=== PATIENT | male | born 1970 | race Caucasian/White ===

== ENCOUNTER 2024-04-27 10:58 | Emergency (ER) | payer OTHER ==
[2024-04-27] MEDS ORDERED: NA CHLORIDE 0.9% 500 ML ONE (11:30)
[2024-04-27 11:54] LABS: Absolute Basophils 0.1 K/uL (0-0.5); Absolute Eosinophils 0.3 K/uL (0-0.5); Absolute Lymphocytes (CBC) 1.8 K/uL (0.7-4.9); Absolute Monocytes 0.8 K/uL (0.1-1.3); Anion Gap 9.4 mEq/L (5.0-15.0); Basophils % 0.6 % (0-1.3); Eosinophils % 1.9 % (0-4.4); Hematocrit 36.3 % (39.6-49.0); Hemoglobin 12.2 g/dL (13.6-17.9); Lymphocytes % 12.8 % (15.3-44.8); MCH 27.4 pg (27.0-35.0); MCHC 33.6 g/dL (32.0-36.0); MCV 81.4 fL (80-100); MPV 8.9 fL (7.6-11.3); Monocytes % 6.1 % (3.3-12.3); Neutrophils % 78.6 % (41.7-73.7); Platelets 318 thou/uL (152-406); Potassium 4.4 mEq/L (3.5-5.1); RBC Red Blood Cell Count 4.45 M/uL (4.33-5.43); Red Cell Distribution Width 16.7 % (12.1-15.2); Troponin High Sensitivity 8.9 pg/mL (<58.9)
[2024-04-27 11:56] LABS: PT Prothrombin Time 26.4 SECONDS (10-13.0); Protime INR 2.42
--- NOTE | 2024-04-27 12:29 | RAD REPORT ---
EXAMINATION: ONE VIEW CHEST XR CLINICAL INDICATION: Male, 53 years old.,syncope;Blunt chest trauma TECHNIQUE: Frontal chest projection is submitted. Examination is limited by patient positioning and t echnique. COMPARISON: 03/16/2014 FINDINGS: The lungs are well inflated and clear. No pneumothorax or sizable effusion. The heart is normal in s ize. Mediastinal contours are unchanged with sequelae of median sternotomy now noted. IMPRESSION: No acute intrathoracic abnormalities.
--- NOTE | 2024-04-27 12:42 | RAD REPORT ---
EXAMINATION: Ribs Right INDICATION: BLUNT CHEST TRAUMA COMPARISON: Same date chest radiograph TECHNIQUE: Frontal and multiple oblique views of the right rib cage. FINDINGS: Included portions of the chest reveal clear lungs. There is no effusion or pneumothorax. Mediastinal contours are within normal limits. No displaced rib fracture is identified. No suspicious focal osseous lesion.. IMPRESSION: No acute fractures are identified radiographically..
--- NOTE | 2024-04-27 13:17 | EDPHYS ---
Physician Documentation [facility] Name: Gerson Boateng Age: 53 yrs Sex: Male : 1970 Arrival Date: 04/27/2024 Time: 10:58 Bed 13 Private MD: ED Physician Agustin Holt HPI: 04/27 11:40 This 53 yrs old Male presents to ER via EMS with complaints of Syncope. rn 11:40 The patient has experienced syncope. Onset: The symptoms/episode began/occurred this rn morning. Duration: This was a single episode. Current symptoms: Currently, the patient is not experiencing any symptoms. The patient has experienced similar episodes in the past. Patient reports fall earlier this morning at his home, has neuropathy and dropfoot, reports recurrent falls due to stumbling. Fell again this morning with arm tucked in on right side and hurt right chest wall. Patient reports soreness to right ribs. No shortness of breath. Patient reports felt okay so went to work, was seated during meeting, got lightheaded and dizzy and had syncopal episode in chair. No fall or trauma during syncopal episode. Patient reports now feels back to normal and is not sure what happened. Denies palpitations or chest pain during that episode. No recent illness. No fever or chills. No vomiting or diarrhea. Sugar has been high for a little while. Historical: - Allergies: 11:11 No Known Allergies; kc6 - PMHx: 11:11 Diabetes mellitus; Hypertensive disorder; Atrial fibrillation; kc6 - PSHx: 11:11 aortic valve replacement; kc6 - Immunization history:: Adult Immunizations up to date. - Infectious Disease History:: Denies. - Social history:: Smoking status: Patient denies any tobacco usage or history of. - Family history:: not pertinent. - Hospitalizations: : No recent hospitalization is reported. ROS: 11:40 Constitutional: Negative for fever, chills, and weight loss, Eyes: Negative for injury, rn pain, redness, and discharge, Neck: Negative for injury, pain, and swelling, Cardiovascular: Positive for right sided chest wall pain Respiratory: Negative for shortness of breath, cough, wheezing, and pleuritic chest pain, Abdomen/GI: Negative for abdominal pain, nausea, vomiting, diarrhea, and constipation, Back: Negative for injury and pain, MS/Extremity: Negative for injury and deformity, Skin: Negative for injury, rash, and discoloration, Neuro: Negative for headache, weakness, numbness, tingling, and seizure, Exam: 11:35 ECG was reviewed by the Attending Physician. rn 11:40 Constitutional: This is a well developed, well nourished patient who is awake, alert, rn and in no acute distress. Head/Face: Normocephalic, atraumatic. ENT: Dry mucous membranes Chest/axilla: Right lateral chest wall tenderness without crepitus Cardiovascular: Regular rate and rhythm. No pulse deficits. Respiratory: Speaking full sentences, unlabored. No increased work of breathing, no retractions or nasal flaring. Abdomen/GI: Soft, nontender, no ecchymosis MS/ Extremity: Pulses equal, no cyanosis. Neuro: Awake and alert, GCS 15, oriented to person, place, time, and situation. Cranial nerves II-XII grossly intact. Motor strength 5/5 in all extremities. Sensory grossly intact. Able to move himself from EMS stretcher to bed without assistance Vital Signs: 11:10 BP 115 / 80; Pulse 55; Resp 15 S; Pulse Ox 100% on R/A; Weight 136.08 kg (R); Height 6 kc6 ft. 2 in. (R); Pain 1/10; 12:20 BP 103 / 73; Pulse 56; Resp 16 S; Pulse Ox 100% on R/A; kc6 13:38 BP 96 / 59; Pulse 55; Resp 16 S; Pulse Ox 100% on R/A; kc6 11:10 Body Mass Index 38.52 (136.08 kg, 187.96 cm) kc6 11:10 Pain Scale: Adult kc6 MDM: 11:07 Medical Screening Exam initiated rn 13:14 Differential Diagnosis: cardiac arrhythmia, idiopathic syncope, vasovagal episode. Data rn reviewed: vital signs, nurses notes, lab test result(s), EKG, radiologic studies, plain films, and as a result, I will discharge patient. Counseling: I had a detailed discussion with the patient and/or guardian regarding the historical points, exam findings, and any diagnostic results supporting the discharge/admit diagnosis, lab results, radiology results, the need for outpatient follow up, to return to the emergency department if symptoms worsen or persist or if there are any questions or concerns that arise at home. Response to treatment: the patient's symptoms have resolved after treatment, the patient's condition has returned to base line, the patient is now symptom free, and as a result, I will discharge patient. Special discussion: I discussed with the patient/guardian in detail that at this point there is no indication for admission to the hospital. It is understood, however, that if the symptoms persist or worsen the patient needs to return immediately for re-evaluation. Based on the history and exam findings, there is no indication for further emergent testing or inpatient evaluation. I discussed with the patient/guardian the need to see the primary care provider for further evaluation of the symptoms. ED course: No acute findings and workup today. No evidence of rib fracture. Patient completely back to baseline. Has ambulated to bathroom without other episodes of dizziness or syncope. I have personally reviewed all of the results, including but not limited to blood tests and imaging deemed necessary to safely discharge this patient at this time. All results given to and printed out for patient. I personally went over all the results with the patient and answered all questions. Patient will follow-up with PCP and or specialist as discussed. Return precautions given and understood.. 04/27 11:08 Order name: Basic Metabolic Panel; Complete Time: 04/27 11:08 Order name: CBC with Diff; Complete Time: 04/27 11:08 Order name: NT PRO-BNP; Complete Time: :04/27 11:08 Order name: PT-INR; Complete Time: :04/27 11:08 Order name: Troponin HS; Complete Time: :04/27 11:08 Order name: XRAY Chest (1 view); Complete Time: 12:44 04/27 11:09 Order name: XRAY Ribs RIGHT; Complete Time: 12:44 04/27 11:08 Order name: EKG; Complete Time: :04/27 11:08 Order name: Cardiac monitoring; Complete Time: :04/27 11:08 Order name: EKG - Nurse/Tech; Complete Time: 11:33 04/27 11:08 Order name: IV Saline Lock; Complete Time: :04/27 11:08 Order name: Labs collected and sent; Complete Time: rn 04/27 11:08 Order name: O2 Per Protocol; Complete Time: rn 04/27 11: Order name: O2 Sat Monitoring; Complete Time: rn EC: Rate is 55 beats/min. Rhythm is regular. QRS interval is normal. QT interval is normal. rn No Q waves. T waves are Normal. No ST changes noted. Clinical impression: Sinus bradycardia. Interpreted by me. Reviewed by me. Administered Medications: Drug: NS 0.9% IV 500 ml 500 ml IV at 1 bolus once; to be given as a bolus over 30 kc6 minutes Volume: 500 ml; Route: IV; Rate: 1 bolus; Site: left antecubital; 13: Follow up: Response: No adverse reaction; IV Status: Completed infusion; IV Intake: kc6 500ml Point of Care Testing: Blood Glucose: : Blood Glucose: 240 mg/dL; kc6 Ranges: Critical Glucose Levels:Adult <50 mg/dl or >400 mg/dl <40 mg/dl or >180 mg/dl Disposition Summary: 04/27/24 13:16 Discharge Ordered Notes: Location: Home rn Problem: new rn Symptoms: have improved rn Condition: Stable rn Diagnosis - Syncope rn - Rib contusion rn - Dehydration rn - Hyperglycemia, unspecified rn Followup: rn - With: Private Physician - When: As needed - Reason: Recheck today's complaints, Re-evaluation by your physician Discharge Instructions: - Discharge Summary Sheet rn - Rib Contusion rn - Dehydration, Adult rn - Hyperglycemia rn - Syncope rn - Blood Glucose Monitoring, Adult rn Forms: - Medication Reconciliation Form rn - Antibiotic aprn - Prescription Opioid Use rn - Patient Portal Instructions rn - Leadership Thank You Letter rn Signatures: Dispatcher [employer] Agustin Martinez MD MD rn Campbell, Kaitlyn, RN RN kc6
--- NOTE | 2024-04-27 13:17 | ER ---
Nurse's Notes [facility] Name: Gerson Boateng Age: 53 yrs Sex: Male : 1970 Arrival Date: 04/27/2024 Time: 10:58 Bed 13 Private MD: Diagnosis: Syncope;Rib contusion;Dehydration;Hyperglycemia, unspecified Presentation: 04/27 11:10 Chief complaint: EMS states: they were toned out for a syncopal episode while sitting kc6 in his office chair and one this AM. no known LOC, pt takes Warfarin daily. Coronavirus screen: At this time, the client does not indicate any symptoms associated with coronavirus-19. Ebola Screen: No symptoms or risks identified at this time. Initial Sepsis Screen: Does the patient meet any 2 criteria? No. Patient's initial sepsis screen is negative. Does the patient have a suspected source of infection? No. Patient's initial sepsis screen is negative. Risk Assessment: Do you want to hurt yourself or someone else? Patient reports no desire to harm self or others. Onset of symptoms was April 27, 2024. Care prior to arrival: Medication(s) given: Lactated Ringers IV initiated. 18 GA, in the left antecubital area, Glucose check: 240. 11:10 Method Of Arrival: EMS: [facility] kc 11:10 Acuity: WARREN 2 kc6 Historical: - Allergies: 11:11 No Known Allergies; kc6 - PMHx: 11:11 Diabetes mellitus; Hypertensive disorder; Atrial fibrillation; kc6 - PSHx: 11:11 aortic valve replacement; kc6 - Immunization history:: Adult Immunizations up to date. - Infectious Disease History:: Denies. - Social history:: Smoking status: Patient denies any tobacco usage or history of. - Family history:: not pertinent. - Hospitalizations: : No recent hospitalization is reported. Screenin:13 [facility] ED Fall Risk Assessment (Adult) History of falling in the last 3 months, kc6 including since admission Yes- physiologic fall (2 pts) Confusion or Disorientation No (0 pts) Intoxicated or Sedated No (0 pts) Impaired Gait No (0 pts) Mobility Assist Device Used No (0 pt) Altered Elimination No (0 pt) Score/Fall Risk Level 0 - 2 = Low Risk Oriented to surroundings, Maintained a safe environment, Educated pt \T\ family on fall prevention, incl call for assistance when getting out of bed. Abuse screen: Denies threats or abuse. Denies injuries from another. Nutritional screening: No deficits noted. Tuberculosis screening: No symptoms or risk factors identified. Assessment: 11:10 General: Appears in no apparent distress. comfortable, well groomed, well developed, kc6 Behavior is calm, cooperative, appropriate for age. Pain: Complains of pain in right lateral anterior chest Pain does not radiate. Pain currently is 1 out of 10 on a pain scale. Neuro: Level of Consciousness is awake, alert, obeys commands, Oriented to person, place, time, situation, Appropriate for age Reports a syncopal episode. Cardiovascular: Denies chest pain, shortness of breath, Heart tones S1 S2 present Capillary refill < 3 seconds Rhythm is sinus bradycardia. Respiratory: Airway is patent Trachea midline Respiratory effort is even, unlabored, Respiratory pattern is regular, symmetrical. GI: No signs and/or symptoms were reported involving the gastrointestinal system. : No signs and/or symptoms were reported regarding the genitourinary system. EENT: No signs and/or symptoms were reported regarding the EENT system. Derm: No signs and/or symptoms reported regarding the dermatologic system. Skin is intact, is healthy with good turgor, Skin is pink, warm \T\ dry. Musculoskeletal: No signs and/or symptoms reported regarding the musculoskeletal system. Circulation, motion, and sensation intact. Range of motion: intact in all extremities. 12:20 Reassessment: Patient appears in no apparent distress at this time. No changes from kc6 previously documented assessment. Patient and/or family updated on plan of care and expected duration. Pain level reassessed. Patient is alert, oriented x 3, equal unlabored respirations, skin warm/dry/pink. 13:37 Reassessment: Patient appears in no apparent distress at this time. No changes from kc6 previously documented assessment. Patient and/or family updated on plan of care and expected duration. Pain level reassessed. Patient is alert, oriented x 3, equal unlabored respirations, skin warm/dry/pink. Patient states feeling better. Patient states symptoms have improved. Vital Signs: 11:10 BP 115 / 80; Pulse 55; Resp 15 S; Pulse Ox 100% on R/A; Weight 136.08 kg (R); Height 6 kc6 ft. 2 in. (R); Pain 1/10; 12:20 BP 103 / 73; Pulse 56; Resp 16 S; Pulse Ox 100% on R/A; kc6 13:38 BP 96 / 59; Pulse 55; Resp 16 S; Pulse Ox 100% on R/A; kc6 11:10 Body Mass Index 38.52 (136.08 kg, 187.96 cm) kc6 11:10 Pain Scale: Adult kc6 ED Course: 11:07 Patient arrived in ED. rn 11:07 Agustin Holt MD is Attending Physician. rn 11:09 Joyce Ellis RN is Primary Nurse. kc6 11:11 Triage completed. kc6 11:11 Arm band placed on. kc6 11:12 Patient has correct armband on for positive identification. Placed in gown. Bed in low kc6 position. Call light in reach. Side rails up X2. Adult w/ patient. quality assurance monitor final on. Pulse ox on. NIBP on. Door closed. Noise minimized. Lights dimmed. Warm blanket given. Pillow given. Verbal reassurance given. 11:12 Maintain EMS IV. Dressing intact. Good blood return noted. Site clean \T\ dry. Gauge \T\ eunice 6 site: 18G LAC. Flushed with 10 mL NS. Patient maintains SpO2 saturation greater than 95% on room air. 11:50 XRAY Chest (1 view) In Process Unspecified. EDMS 11:50 XRAY Ribs RIGHT In Process Unspecified. EDMS 13:38 No provider procedures requiring assistance completed. IV discontinued, intact, kc6 bleeding controlled, No redness/swelling at site. Pressure dressing applied. Administered Medications: 11:33 Drug: NS 0.9% IV 500 ml 500 ml IV at 1 bolus once; to be given as a bolus over 30 kc6 minutes Volume: 500 ml; Route: IV; Rate: 1 bolus; Site: left antecubital; 13:01 Follow up: Response: No adverse reaction; IV Status: Completed infusion; IV Intake: kc6 500ml Medication: 13:38 VIS not applicable for this client. kc6 Point of Care Testing: Blood Glucose: 11:11 Blood Glucose: 240 mg/dL; kc6 Ranges: Intake: 13:01 IV: 500ml; Total: 500ml. kc6 Outcome: 13:16 Discharge ordered by . rn 13:38 Discharged to home ambulatory, with family, with significant other, kc6 13:38 Condition: improved 13:38 Discharge instructions given to patient, family, significant other, Instructed on discharge instructions, follow up and referral plans. Demonstrated understanding of instructions, follow-up care, 13:38 Patient left the ED. kc6 Signatures: Dispatcher [employer] EDAgustin Rutherford MD MD rn Campbell, Kaitlyn, RN RN kc6
[2024-04-27 14:04] VITALS: O2SAT 100
[2024-04-27 14:06] VITALS: BP 96/59
--- NOTE | 2024-04-28 11:00 | EKG ---
Test Date: 2024-04-27 Test Time: 11:18:12 Telehealth Coordinator: IVY MEASUREMENT RESULTS: Intervals: Rate: 55 ND: 194 QRSD: 106 QT: 438 QTc: 419 [place]: P: 60 ND: 194 QRS: 21 T: 64 INTERPRETIVE STATEMENTS: Sinus bradycardia RSR' or QR pattern in V1 suggests right ventricular conduction delay Borderline ECG Compared to ECG 03/16/2014 14:50:51 RSR' in V1 or V2 now present Sinus rhythm no longer present Electronically Signed On 04-28-24 10:57:09 CDT by Daniel Weiss
== END 2024-04-27 13:38 | disposition home or self-care (01) ==
LOC: ER 10:58
DX: E86.0 Dehydration (principal); S20.211A Contusion of right front wall of thorax, initial encounter; E11.65 Type 2 diabetes mellitus with hyperglycemia
CPT/HCPCS: 93005; 85025; 80048; 36415; 85610; 84484; 83880; 71045; 71100; 96360; 99285; J7040

== ENCOUNTER 2024-09-21 11:58 | Inpatient (IN) | payer OTHER ==
--- NOTE | 2024-09-21 12:58 | RAD REPORT ---
EXAM: Chest Single View HISTORY: 53 years Male FEVER COMPARISON: 04/27/2024 FINDINGS: LUNGS/PLEURA: The lungs are clear. No pleural effusions or pneumothorax. No pulmonary edema. CARDIAC/MEDIASTINUM: The cardiac silhouette is within normal limits. UPPER ABDOMEN: No significant abnormality. BONES: No acute abnormality. LINES/TUBES/OTHER: N/A IMPRESSION: No evidence of acute cardiopulmonary disease.
--- NOTE | 2024-09-21 12:58 | RAD REPORT ---
EXAMINATION: Head Brain Wo Cont CLINICAL INDICATION: Male, 53 years old.SYNCOPE TECHNIQUE: Axial CT images from the skull base to the vertex without intravenous contrast. Coronal an d sagittal reformatted images were created from the data set. One or more of the following dose reduction techniques were used: Automated exposure control, adjustment of the mA and/or kV according to patient size, and/or iterative reconstruction. Unless otherwise specified, incidental findings do not require dedicated imaging follow-up. [id number]. COMPARISON: No prior exams FINDINGS: INTRACRANIAL: No acute intracranial hemorrhage. No acute large vascular territory infarct. No hydroce phalus. No mass effect or midline shift. No significant white matter disease. VASCULATURE: No visualized abnormalities in the arteries or dural venous sinuses. SCALP/SKULL: No calvarial fracture identified. No acute soft tissue abnormality. SINUSES: The visualized paranasal sinuses are mostly clear. No significant mastoid fluid. IMPRESSION: No acute intracranial abnormality.
[2024-09-21 13:25] LABS: Sqamous Epithelial <5 /HPF (None Seen); Urine Culture Reflex Order NOT NEEDED; Urine Microscopic Reflex YN ORDER UMIC; Urine Yeast (Budding) Trace /HPF (None Seen)
[2024-09-21] MEDS ORDERED: NA CHLORIDE 0.9% 1,000 ML ONE ×2 (13:29→14:23)
[2024-09-21 13:41] LABS: Absolute Lymphocytes (CBC) 0.4 K/uL (0.7-4.9); Hematocrit 32.8 % (39.6-49.0); Hemoglobin 11.1 g/dL (13.6-17.9); MCH 32.2 pg (27.0-35.0); MCHC 33.8 g/dL (32.0-36.0); MCV 95.2 fL (80-100); MPV 8.1 fL (7.6-11.3); Nucleated RBC Absolute Count 0.0 (0-0); Nucleated Red Blood Cells % 0.0 % (0-0); RBC Red Blood Cell Count 3.44 M/uL (4.33-5.43); White Blood Count 17.10 thou/uL (4.3-10.9)
[2024-09-21 13:41] LABS: Influenza A Ag Negative; Influenza B Ag Negative; SARS-CoV-2 Antigen Rapid Res Negative (Negative)
[2024-09-21 14:03] LABS: PT Prothrombin Time 18.6 SECONDS (10-13.0); PTT, Activated Partial Thromb 30.9 SECONDS (27.2-37.4); Protime INR 1.67
[2024-09-21 14:05] LABS: ALT/SGPT 62.0 U/L (16-61); AST/SGOT 68.0 U/L (15-37); Albumin 4.0 g/dL (3.4-5.0); Albumin/Globulin Ratio 1.0 (1.1-1.8); Alkaline Phosphatase 85.0 U/L (45-117); Anion Gap 14.3 mEq/L (5.0-15.0); BUN Blood Urea Nitrogen 25.0 mg/dL (7-18); Globulin 3.9 g/dL (2.3-3.5); Glucose Level 135.0 mg/dL (74-106); NT PRO-BNP 202.0 pg/mL (<125); Potassium 4.3 mEq/L (3.5-5.1); Troponin High Sensitivity 8.5 pg/mL (<58.9)
[2024-09-21] MEDS ORDERED: CEFAZOLIN SODIUM 1 GM/VIAL ONE (14:22)
[2024-09-21] MEDS ORDERED: VANCOMYCIN 1 GM/VIAL ONE (14:22)
[2024-09-21] MEDS ORDERED: NA CHLORIDE 0.9% 250 ML ONE ×2 (14:23→14:47)
[2024-09-21] MEDS ORDERED: NA CHLORIDE 0.9% 100 ML ONE (14:24)
[2024-09-21 14:31] LABS: Blood Morphology Comment NOTED (NOT SEEN); White Blood Cell Scan OK (OK)
[2024-09-21 14:32] LABS: Anisocytosis SLIGHT; Macrocytosis SLIGHT; Stomatocytes 1+
--- NOTE | 2024-09-21 15:16 | EDPHYS ---
Physician Documentation [facility] Name: Gerson Boateng Age: 53 yrs Sex: Male : 1970 Arrival Date: 09/21/2024 Time: 11:58 Bed 16 Private MD: ED Physician Agustin Holt HPI: 09/21 12:51 This 53 yrs old Male presents to ER via EMS with complaints of Syncope. rn 12:51 Patient reports syncopal episode while eating, was seated and at rest. Does not recall rn choking on anything. No preceding chest pain or shortness of breath. Reports feeling chills since this morning but no focus of infection. Does report wound to right great toe a couple weeks ago, no drainage but is red. Patient has peripheral neuropathy.. Historical: - Allergies: 12:03 No Known Allergies; ss - PMHx: 12:03 Atrial fibrillation; Atrial fibrillation; diabetes mellitus; Hypertensive disorder; ss - PSHx: 12:03 Aortic valve replacement; ss - Immunization history:: Adult Immunizations unknown. - Infectious Disease History:: Denies. - Social history:: Smoking status: Patient denies any tobacco usage or history of. - Family history:: not pertinent. - Hospitalizations: : No recent hospitalization is reported. ROS: 12:51 Constitutional: Negative for fever, positive for chills Eyes: Negative for injury, rn pain, redness, and discharge, ENT: Negative for injury, pain, and discharge, Neck: Negative for injury, pain, and swelling, Cardiovascular: Negative for chest pain, palpitations, and edema, Respiratory: Negative for shortness of breath, cough, wheezing, and pleuritic chest pain, Abdomen/GI: Negative for abdominal pain, nausea, vomiting, diarrhea, and constipation Back: Negative for injury and pain, : Negative for injury, bleeding, discharge, and swelling, MS/Extremity: Negative for injury and deformity, Skin: Negative for injury, rash, and discoloration, Neuro: Negative for headache, numbness, tingling, and seizure, Exam: 12:51 Constitutional: This is a well developed, well nourished patient who is awake, alert, rn and in no acute distress. Head/Face: Normocephalic, atraumatic. ENT: Dry mucous membranes. Cardiovascular: Regular rate and rhythm. No pulse deficits. Respiratory: Mild tachypnea Abdomen/GI: Soft, non-tender Skin: Right great toe with shallow wound and ecchymosis. No necrosis or drainage. Surrounding erythema but does not extend past foot. MS/ Extremity: Pulses equal, no cyanosis. Neuro: Awake and alert, GCS 15, oriented to person, place, time, and situation. Cranial nerves II-XII grossly intact. Motor strength 5/5 in all extremities. Sensory grossly intact. Vital Signs: 12:02 BP 130 / 73; Pulse 94; Resp 16; Temp 98(O); Pulse Ox 98% on R/A; Weight 113.4 kg; ss Height 6 ft. 2 in. ; Pain 0/10; 13:43 BP 111 / 63; Pulse 91; Resp 20; Pulse Ox 94% on R/A; kj2 15:07 BP 124 / 68; Pulse 92; Resp 20; Pulse Ox 94% on R/A; kj2 17:00 BP 124 / 66; Pulse 102; Resp 20; Temp 98.2; Pulse Ox 95% ; kj2 12:02 Body Mass Index 32.10 (113.40 kg, 187.96 cm) ss 12:02 Pain Scale: Adult ss MDM: 12:02 Medical Screening Exam initiated rn 15:13 Differential Diagnosis: Differential Diagnosis:. Differential Diagnosis: rn lpn cna arrhythmia, vasovagal episode, Infection, cellulitis, bacteremia, endocarditis. Data reviewed: vital signs, nurses notes, lab test result(s). Consideration of Admission/Observation Patient was admitted/placed on observation. Escalation of care including admission/observation considered. Management of patient was discussed with the following: Hospitalist: Discussed case with hospitalist service, will admit for further care.. Independent interpretation of the following test(s) in the Emergency Department EKG: See my EKG interpretation above X-Ray: My interpretation is Chest x-ray images negative for pneumonia or pneumothorax per my interpretation. Care significantly affected by the following chronic conditions: Atrial fibrillation, diabetes, hypertension. Counseling: I had a detailed discussion with the patient and/or guardian regarding the historical points, exam findings, and any diagnostic results supporting the discharge/admit diagnosis, lab results, radiology results, the need for further work-up and treatment in the hospital. Response to treatment: the patient's symptoms have mildly improved after treatment, and as a result, I will admit patient. 09/21 12:12 Order name: BNP; Complete Time: 14:16 rn 04 12:12 Order name: Blood Culture Adult (2) rn / 12:12 Order name: CBC with Diff; Complete Time: 14:43 rn /04 12:12 Order name: CMP; Complete Time: 14:16 rn /04 12:12 Order name: Lactate w/ 2H reflex if indic.; Complete Time: 14:16 rn 09/21 12:12 Order name: Protime (+inr); Complete Time: 14:16 rn 04 12:12 Order name: Ptt, Activated; Complete Time: 14:16 rn / 12:12 Order name: Troponin HS; Complete Time: 14:16 rn /04 12:12 Order name: COVID-19 Ag + Flu A+B Ag; Complete Time: 13:43 04 12:12 Order name: Group A Streptococcus Rapid; Complete Time: 13:43 04 12:12 Order name: UA Rfx Valentino Cult if indicated; Complete Time: 13:43 09/21 13:36 Order name: Throat Culture EDMI 09/21 13:46 Order name: CBC Smear Scan; Complete Time: 14:43 EDMI 09/21 14:07 Order name: Ghost Lactate-NO COLLECT Timer; Complete Time: 16:51 EDMI 09/21 17:04 Order name: Lactate Sepsis 2 HR Follow-up EDMI 09/21 12:12 Order name: Chest Single View XRAY; Complete Time: 13:43 09/21 12:28 Order name: CT Head Brain wo Cont; Complete Time: 13:43 09/21 15:29 Order name: Chest Abdomen Pelvis Wo Con CT; Complete Time: 16:51 la1 09/21 15:50 Order name: Foot Right 3 View XRAY; Complete Time: 16:51 la1 09/21 12:12 Order name: Accucheck rn 09/21 12:12 Order name: Cardiac monitoring rn 09/21 12:12 Order name: EKG - Nurse/Tech; Complete Time: 14:18 rn 09/21 12:12 Order name: IV Saline Lock - Large Bore rn 09/21 12:12 Order name: Labs collected and sent rn 09/21 12:12 Order name: O2 Per Protocol rn 09/21 12:12 Order name: O2 Sat Monitoring rn 09/21 12:12 Order name: Vital Signs rn Administered Medications: 13:44 Drug: NS 0.9% IV 1000 ml IV at 1000 ml once; to be given as a bolus over 60 minutes kj2 Route: IV; Rate: 1000 ml; Site: left antecubital; 14:45 Drug: Cefepime IVPB 1 grams IVPB at 200 ml/hr once over 30 mins; (mix in NS 100 mL) kj2 Route: IVPB; Rate: 200 ml/hr; Infused Over: 30 mins; Site: left antecubital; 14:45 Drug: NS 0.9% IV 1000 ml IV at 1000 ml once; to be given as a bolus over 60 minutes kj2 Route: IV; Rate: 1000 ml; Site: left antecubital; 15:02 Drug: vancoMYCIN IVPB 1 grams IVPB once over 2 hrs Route: IVPB; Infused Over: 2 hrs; kj2 Site: left antecubital; Disposition Summary: 09/21/24 15:15 Hospitalization Ordered Notes: Hospitalization Status: Inpatient Admission rn Location: Telemetry/MedSurg (Inpatient) rn Condition: Stable rn Problem: new rn Symptoms: have improved rn Bed/Room Type: Standard rn Provider: Aman Holt(09/21/24 16:19) la1 Room Assignment: [facility] [place] [facility] [place](09[place]21[place] 16:24) Diagnosis - Syncope rn - Rigors rn - Cellulitis of right lower limb rn Forms: - Medication Reconciliation Form rn - SBAR form rn - Leadership Thank You Letter rn Signatures: Dispatcher [employer] EDMI Jocelin Pires Agustin Holt MD MD rn Blanchard, Shelby, RN RN Martin Kearney, WOOD FINISHER APPRENTICE-C WOOD FINISHER APPRENTICE-Cla1 Elodia Harrison RN RN kj2 Corrections: (The following items were deleted from the chart) 12:13 12:13 PROBNP+C.LAB.BRZ ordered. EDMS EDMS 12:13 12:13 BLOOD CULTURE*+BA.LAB.BRZ ordered. EDMS EDMS 12:13 12:13 CBC+H.LAB.BRZ ordered. EDMS EDMS 12:13 12:13 COMPREHENSIVE METABOLIC PANEL+C.LAB.BRZ ordered. EDMS EDMS 12:13 12:13 LACTATE+C.LAB.BRZ ordered. EDMS EDMS 12: 12:13 PROTIME (+INR)+COAG.LAB.BRZ ordered. EDMS EDMS 12: 12:13 PTT, ACTIVATED+COAG.LAB.BRZ ordered. EDMS EDMS 12: 12:13 Troponin High Sensitivity+C.LAB.BRZ ordered. EDMS EDMS 12: 12:13 COVID-19 Ag + Flu A+B Ag+I.LAB.BRZ ordered. EDMS EDMS 12: 12:13 Group A Streptococcus Rapid Sc+I.LAB.BRZ ordered. EDMS EDMS 12: 12:13 UA Rfx Valentino Cult if indicated+U.LAB.BRZ ordered. EDMS EDMS 12: 12:13 Chest Single View+RAD.RAD.BRZ ordered. EDMS EDMS 16:19 15:15 Jay Gomez rn la1 16:24 15:15 rn bd
--- NOTE | 2024-09-21 15:16 | ER ---
Nurse's Notes [facility] Name: Gerson Boateng Age: 53 yrs Sex: Male : 1970 Arrival Date: 09/21/2024 Time: 11:58 Bed 16 Private MD: Diagnosis: Syncope;Rigors;Cellulitis of right lower limb Presentation: 09/21 12:02 Chief complaint: EMS states: was eating at a restaurant with family when suddenly had ss an episode lasting only moments where patient was unable to talk to follow any commands. Pt is back to baseline, but complains that he is cold. Pt reports that these episodes typically occur every few months, last one being 1 month ago. Coronavirus screen: Client denies travel out of the [place] in the last 14 days. Ebola Screen: Patient denies exposure to infectious person. Patient denies travel to an Ebola-affected area in the 21 days before illness onset. Initial Sepsis Screen: Does the patient meet any 2 criteria? No. Patient's initial sepsis screen is negative. Does the patient have a suspected source of infection? No. Patient's initial sepsis screen is negative. Risk Assessment: Do you want to hurt yourself or someone else? Patient reports no desire to harm self or others. Onset of symptoms was September 21, 2024. 12:02 Method Of Arrival: EMS: [facility] 12:02 Acuity: WARREN 3 ss 12:05 Care prior to arrival: Glucose check: 119. Triage Assessment: 12:05 Neuro: Reports dizziness, since today. kj2 Historical: - Allergies: 12:03 No Known Allergies; ss - PMHx: 12:03 Atrial fibrillation; Atrial fibrillation; diabetes mellitus; Hypertensive disorder; ss - PSHx: 12:03 Aortic valve replacement; ss - Immunization history:: Adult Immunizations unknown. - Infectious Disease History:: Denies. - Social history:: Smoking status: Patient denies any tobacco usage or history of. - Family history:: not pertinent. - Hospitalizations: : No recent hospitalization is reported. Screenin:04 Abuse screen: Denies threats or abuse. Denies injuries from another. Nutritional ss screening: No deficits noted. Tuberculosis screening: Never had TB. 12:05 [facility] ED Fall Risk Assessment (Adult) History of falling in the last 3 months, kj2 including since admission No falls in past 3 months (0 pts) Confusion or Disorientation No (0 pts) Intoxicated or Sedated No (0 pts) Impaired Gait Yes (1 pt) Mobility Assist Device Used Yes (1 pt) Altered Elimination No (0 pt) Score/Fall Risk Level 0 - 2 = Low Risk Maintained a safe environment, Hourly rounding (assess needs \T\ fall precautionary measures) done. Assessment: 12:04 General: Appears in no apparent distress. comfortable, Behavior is calm, cooperative, ss Denies fever, feeling ill, fatigue, chills. Pain: Denies pain. Neuro: Level of Consciousness is awake, alert, obeys commands, Oriented to person, place, time, situation, Parking Garage Manager are equal bilaterally Moves all extremities. Full function Speech is normal, Facial symmetry appears normal, Pupils are PERRLA, Intact. Respiratory: Airway is patent Respiratory effort is even, unlabored, Respiratory pattern is regular, symmetrical. GI: Patient currently denies abdominal pain, diarrhea, nausea, vomiting. : No signs and/or symptoms were reported regarding the genitourinary system. Derm: Skin is intact, is healthy with good turgor, Skin is pink, warm \T\ dry. normal. Musculoskeletal: Circulation, motion, and sensation intact. Range of motion: intact in all extremities, Swelling absent. 13:05 Reassessment: Patient appears in no apparent distress at this time. Patient and/or kj2 family updated on plan of care and expected duration. Pain level reassessed. Patient is alert, oriented x 3, equal unlabored respirations, skin warm/dry/pink. 14:00 Reassessment: Patient appears in no apparent distress at this time. Patient and/or kj2 family updated on plan of care and expected duration. Pain level reassessed. Patient is alert, oriented x 3, equal unlabored respirations, skin warm/dry/pink. 15:07 Reassessment: Patient appears in no apparent distress at this time. Patient and/or kj2 family updated on plan of care and expected duration. Pain level reassessed. Patient is alert, oriented x 3, equal unlabored respirations, skin warm/dry/pink. 16:00 Reassessment: Patient appears in no apparent distress at this time. Patient and/or kj2 family updated on plan of care and expected duration. Pain level reassessed. Patient is alert, oriented x 3, equal unlabored respirations, skin warm/dry/pink. 17:01 Reassessment: Patient appears in no apparent distress at this time. Patient and/or kj2 family updated on plan of care and expected duration. Pain level reassessed. Patient is alert, oriented x 3, equal unlabored respirations, skin warm/dry/pink. Vital Signs: 12:02 BP 130 / 73; Pulse 94; Resp 16; Temp 98(O); Pulse Ox 98% on R/A; Weight 113.4 kg; Height 6 ft. 2 in. ; Pain 0/10; 13:43 BP 111 / 63; Pulse 91; Resp 20; Pulse Ox 94% on R/A; kj2 15:07 BP 124 / 68; Pulse 92; Resp 20; Pulse Ox 94% on R/A; kj2 17:00 BP 124 / 66; Pulse 102; Resp 20; Temp 98.2; Pulse Ox 95% ; kj2 12:02 Body Mass Index 32.10 (113.40 kg, 187.96 cm) ss 12:02 Pain Scale: Adult ED Course: 12:01 Patient arrived in ED. ss 12:02 Agustin Holt MD is Attending Physician. rn 12:03 Triage completed. ss 12:03 Arm band placed on right wrist. ss 12:04 Patient has correct armband on for positive identification. Bed in low position. ss 12:05 Provided Education on: ccall light. kj2 12:40 CT Head Brain wo Cont In Process Unspecified. EDMS 12:48 Chest Single View XRAY In Process Unspecified. EDMS 13:43 Elodia Harrison RN is Primary Nurse. kj2 15:14 Jay Gomez MD is Hospitalizing Provider. rn 15:45 Chest Abdomen Pelvis Wo Con CT In Process Unspecified. EDMS 16:02 Foot Right 3 View XRAY In Process Unspecified. EDMS 16:19 Aman Holt MD is Hospitalizing Provider. la1 18:48 No provider procedures requiring assistance completed. Patient admitted, IV remains in kj2 place. Administered Medications: 13:44 Drug: NS 0.9% IV 1000 ml IV at 1000 ml once; to be given as a bolus over 60 minutes kj2 Route: IV; Rate: 1000 ml; Site: left antecubital; 14:45 Drug: Cefepime IVPB 1 grams IVPB at 200 ml/hr once over 30 mins; (mix in NS 100 mL) kj2 Route: IVPB; Rate: 200 ml/hr; Infused Over: 30 mins; Site: left antecubital; 14:45 Drug: NS 0.9% IV 1000 ml IV at 1000 ml once; to be given as a bolus over 60 minutes kj2 Route: IV; Rate: 1000 ml; Site: left antecubital; 15:02 Drug: vancoMYCIN IVPB 1 grams IVPB once over 2 hrs Route: IVPB; Infused Over: 2 hrs; kj2 Site: left antecubital; Medication: 12:04 VIS not applicable for this client. ss Outcome: 15:15 Decision to Hospitalize by Provider. rn 18:48 Admitted to Med/surg accompanied by tech, via wheelchair, kj2 18:48 Condition: stable 18:48 Instructed on the need for admit, Demonstrated understanding of instructions, 18:49 Patient left the ED. kj2 Signatures: Dispatcher [employer] EDMS Agustin Holt MD MD rn Blanchard, Shelby, RN RN Martin Kearney, TALENT ACQUISITION SPECIALIST-C TALENT ACQUISITION SPECIALIST-[facility] Elodia Harrison RN RN kj2
--- NOTE | 2024-09-21 15:59 | RAD REPORT ---
EXAM: Chest Abd Pelvis Wo Con CLINICAL INDICATION: Male, 53 years old severe sepsis, dyspnea, vignesh r/o obstruction TECHNIQUE: CT chest, abdomen and pelvis was performed, without IV contrast, as per department protoco l. Axial, sagittal and coronal reconstructions were obtained. One or more of the following dose reduction techniques were used: Automated exposure control, adjustment of the mA and/or kV according to the patient size, and/or iterative reconstruction. Unless otherwise specified, incidental findings do not require dedicated imaging follow-up. [id number]. COMPARISON: No prior exams FINDINGS: The lack of intravenous contrast limits the sensitivity of this exam for evaluation of solid visceral organs, vascular structures, and retroperitoneum. ---THORAX--- LOWER NECK AND CHEST WALL: Visualized thyroid gland and soft tissues are normal. MEDIASTINUM AND LYMPH NODES: No mediastinal mass or fluid collection. Normal size mediastinal, hilar, and axillary lymph nodes. THORACIC AORTA: No thoracic aortic aneurysm. PULMONARY ARTERIES: Caliber is within normal limits. Unable to evaluate for pulmonary emboli due to e ither protocol or lack of contrast. HEART: Normal heart size. No coronary calcifications.No significant pericardial effusion. Aortic valv e prosthesis. LUNGS AND AIRWAYS: Airways are clear. No evidence of airspace or interstitial process. No suspicious and/or stable pulmonary nodules. PLEURA: No pleural effusion. No pneumothorax. ---ABDOMEN/PELVIS--- UPPER GI: No significant abnormality. LIVER: Hepatomegaly with steatosis. GALLBLADDER/BILE DUCTS: Cholelithiasis without CT evidence of acute cholecystitis.? PANCREAS: No mass, ductal dilation, or esteban-pancreatic fluid. SPLEEN: Unremarkable. ADRENALS: No adrenal masses. KIDNEYS AND URETERS: No hydronephrosis.Low density and/or too small to characterize renal lesions whi ch are statistically benign.Nonspecific perinephric stranding. ABDOMINAL AORTA AND OTHER VESSELS: Moderate atherosclerotic changes without aortic aneurysm. PERITONEUM: No abnormal free fluid. No free air. LYMPH NODES: No pathologic lymphadenopathy. ABDOMINAL WALL: Small bowel containing periumbilical hernia. No bowel obstruction. Colorectal anastom osis SMALL BOWEL/COLON: Small bowel has normal course and caliber. No colonic wall thickening or pericolon ic inflammatory changes. URINARY BLADDER: Underdistended but grossly unremarkable. REPRODUCTIVE ORGANS: No pathologic process. ---COMBINED--- MUSCULOSKELETAL: Remote rib fractures. Sternotomy. No acute fracture. ADDITIONAL FINDINGS: None. IMPRESSION: No acute findings within the chest, abdomen, or pelvis. Nonspecific perinephric stranding could indic ate infection or renal failure. Incidental findings as noted above,
[2024-09-21] MEDS ORDERED: ONDANSETRON 4 MG/2 ML VIAL IV PRN (16:21)
[2024-09-21] MEDS: INSULIN REGULAR (HUMAN) 100 UNIT/ML SQ SCH (16:30)
--- NOTE | 2024-09-21 16:34 | RAD REPORT ---
EXAMINATION: XR RIGHT FOOT CLINICAL INDICATION: Male, 53 years old. right foot wound TECHNIQUE: Multiple views of the right foot were obtained. COMPARISON: No prior exam. FINDINGS: Mild soft tissue swelling is seen along the dorsum of the foot. Large plantar calcaneal sp ur. No fracture seen. No radiographic evidence of osteomyelitis, although the toes are somewhat limited in assessment due to position. Nonemergent MRI follow-up suggested concern for osteomyelitis persists clinically.
--- NOTE | 2024-09-21 16:41 | P.HP ---
Certification for Inpatient Patient admitted to: Inpatient With expected LOS: >2 Midnights Patient will require the following post-hospital care: None Practitioner: I am a practitioner with admitting privileges, knowledge of patient current condition, hospital course, and medical plan of care. Services: Services provided to patient in accordance with Admission requirements found in Title 42 Section 412.3 of the Code of Federal Regulations <Martin Kearney - Last Filed: 09/21/24 16:33> Patient History Date of Service: 09/21/24 Reason for admission: Severe sepsis History of Present Illness: 53-year-old male with history of mechanical aortic valve on warfarin, hypertension, hyperlipidemia, diabetes mellitus type 2 has [id number], atrial fibrillation presents the emergency department chief complaint of syncope. He reports that he was at a restaurant today and he suddenly began to feel lightheaded and was assisted to the ground by a bystander. Since then he has had significant rigors/chills. Family member at bedside reports that the last 2 nights he has stood up to the bathroom and had syncopal or near syncopal events, they checked his blood pressure overnight at home and found to be in the 70s over 40s. Patient was evaluated here in the emergency department his labs were significant for leukocytosis with a white blood cell count of 17.1 hemoglobin 11.1 hematocrit 32.8 INR 1.67 lactate 3.1 creatinine 2.73 GFR 27 glucose 135 sodium 132 AST 68 ALT 62 troponin normal BNP 202 UA with 2+ blood negative for COVID/influenza, chest x-ray is negative for acute findings, CT head was negative for acute findings CT chest abdomen pelvis without contrast subsequently performed showed only nonspecific perinephric stranding which could indicate infection or renal failure. Blood cultures were obtained in the emergency department he was started on broad-spectrum antibiotics with vancomycin/cefepime. He does have a small wound to the right great toe with some mild erythema surrounding, questionable cellulitis. Patient need to be admitted for further management of suspected severe sepsis - Past Medical/Surgical History -: Mechanical aortic valve -: Atrial fibrillation -: Diabetes mellitus type [id number] -: Hypertension -: Hyperlipidemia -: CKDunknown baseline Psychosocial/ Personal History: Lives at home with family - Family History Family History: Reviewed- Non-Contributory - Social History Alcohol use: Yes CD- Drugs: No Caffeine use: Yes Place of Residence: Home <Martin Kearney - Last Filed: 09/21/24 16:33> Date of Service: 09/21/24 <Aman Holt - Last Filed: 09/21/24 17:22> Allergies No Known Drug Allergies Allergy (Unverified 03/17/14 19:08) Unknown Review of Systems 10-point ROS is otherwise unremarkable General: Fever, Chills, Weakness, Malaise <Martin Kearney - Last Filed: 09/21/24 16:33> Physical Examination - Physical Exam General: Oriented x3, Obese, Other (Drowsy) HEENT: Atraumatic, PERRLA, EOMI Neck: Supple Respiratory: Clear to auscultation bilaterally, Normal air movement Cardiovascular: No edema, Regular rate/rhythm, Normal S1 S2, Other (Audible click from aortic valve) Gastrointestinal: Normal bowel sounds, No tenderness Musculoskeletal: No tenderness Integumentary: No rashes Neurological: Normal speech, Normal affect - Studies Laboratory Data (last 24 hrs) 09/21/24 09/21/24 09/21/24 13:30 13:30 13:30 WBC 17.10 H Hgb 11.1 L Hct 32.8 L Plt Count 308 PT 18.6 H INR 1.67 APTT 30.9 Sodium 132 L Potassium 4.3 BUN 25 H Creatinine 2.73 H Glucose 135 H Total Bilirubin 0.6 AST 68 H ALT 62 H Alkaline Phosphatase 85 <Martin Kearney - Last Filed: 09/21/24 16:33> - Studies Laboratory Data (last 24 hrs) 09/21/24 09/21/24 09/21/24 13:30 13:30 13:30 WBC 17.10 H Hgb 11.1 L Hct 32.8 L Plt Count 308 PT 18.6 H INR 1.67 APTT 30.9 Sodium 132 L Potassium 4.3 BUN 25 H Creatinine 2.73 H Glucose 135 H Total Bilirubin 0.6 AST 68 H ALT 62 H Alkaline Phosphatase 85 <Aman Holt - Last Filed: 09/21/24 17:22> Assessment and Plan - Plan Assessment: Suspected severe sepsis Right great toe wound Acute kidney injury Mechanical aortic valve on warfarin with subtherapeutic INR Atrial fibrillation on chronic anticoagulation Diabetes mellitus type [id number] Hypertension Hyperlipidemia Neuropathy Plan: Suspected severe sepsis Right great toe wound Blood cultures obtained in ED, continue broad-spectrum antibiotic with vancomycin/cefepime CT chest abdomen pelvis noncontrast shows some perinephric stranding which may be infection or renal failure no other acute findings Wound to right great toe not very impressive, does not match severity of suspected infection Interval bacteremia, endocarditis, echocardiogram ordered and blood cultures pending Repeat lactate ordered and pending Acute kidney injury Continue IV fluids CT abdomen/pelvis negative for obstructive findings Nephrology consultation Mechanical aortic valve on warfarin with subtherapeutic INR Atrial fibrillation on chronic anticoagulation Continue heparin drip Echocardiogram ordered to evaluate valves/rule out endocarditis Daily INR continue warfarin by mouth Continue sotalol, Cardizem Diabetes mellitus type [id number] ACHS Accu-Chek, sliding scale insulin Hold metformin given DORIE Hypertension Will continue sotalol and Cardizem for rate control hold other blood premedications including lisinopril Hyperlipidemia Neuropathy Continue home medications DVT PPX: Heparin drip, bridge with warfarin Code status: Full code Discharge Plan: Home Plan to discharge in: 72 Hours - Advance Directives Does patient have a Living Will: No Does patient have a Durable POA for Healthcare: No - Code Status/Comfort Care Code Status Assessed: Yes (Full code) Critical Care: No Time Spent Managing Pts Care (In Minutes): 72 <Martin Kearney - Last Filed: 09/21/24 16:33> - Plan Patient seen and examined. Plan of care discussed with LUMBER CHECKER Caio. 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 Suspect prerenal/hypovolemia, possibly from hypotension CT negative Right great toe does not appear to be severely infected locally. He has poor sensation in his feet and cannot an injury/cut at a pool 2 weeks ago Echocardiogram, antibiotics Renally dose adjust his medications gabapentin <Aman Holt - Last Filed: 09/21/24 17:22>
[2024-09-21] MEDS: VANCOMYCIN 1 GM in NA CHLORIDE 0.9% 250 ML IVPB ONE (17:00)
[2024-09-21 19:01] VITALS: O2SAT 95
[2024-09-21] MEDS: HEPARIN/D5W 25,000 UNIT/500 ML BAG IV SCH (20:55)
[2024-09-21] MEDS: WARFARIN SODIUM 7.5 MG TAB PO SCH (20:57)
[2024-09-21] MEDS: GABAPENTIN 400 MG CAP PO SCH (20:57)
[2024-09-22 07:42] LABS: Absolute Lymphocytes (CBC) 0.8 K/uL (0.7-4.9); Hematocrit 29.6 % (39.6-49.0); Hemoglobin 10.0 g/dL (13.6-17.9); MCH 32.4 pg (27.0-35.0); MCHC 33.8 g/dL (32.0-36.0); MCV 95.8 fL (80-100); MPV 8.3 fL (7.6-11.3); Nucleated RBC Absolute Count 0.0 (0-0); Nucleated Red Blood Cells % 0.1 % (0-0); RBC Red Blood Cell Count 3.09 M/uL (4.33-5.43); White Blood Count 12.10 thou/uL (4.3-10.9)
[2024-09-22 07:54] LABS: PT Prothrombin Time 16.2 SECONDS (10-13.0); PTT, Activated Partial Thromb 44.5 SECONDS (27.2-37.4); Protime INR 1.45
[2024-09-22 08:08] LABS: ALT/SGPT 37.0 U/L (16-61); AST/SGOT 55.0 U/L (15-37); Albumin 3.3 g/dL (3.4-5.0); Albumin/Globulin Ratio 0.9 (1.1-1.8); Alkaline Phosphatase 68.0 U/L (45-117); Anion Gap 10.9 mEq/L (5.0-15.0); BUN Blood Urea Nitrogen 24.0 mg/dL (7-18); Globulin 3.7 g/dL (2.3-3.5); Glucose Level 120.0 mg/dL (74-106); Potassium 3.9 mEq/L (3.5-5.1); Troponin High Sensitivity 15.7 pg/mL (<58.9)
[2024-09-22] MEDS: DILTIAZEM HCL 120 MG SR CAP PO SCH (08:17)
[2024-09-22] MEDS: CEFEPIME 1 GM in NA CHLORIDE 0.9% 100 ML IV SCH (08:18)
[2024-09-22] MEDS: GABAPENTIN 100 MG CAP PO SCH (08:21)
--- NOTE | 2024-09-22 11:52 | P.CNS ---
Date of Consult: 09/22/24 Chief Complaint: Severe sepsis History of Present Illness: Patient with PMH of mechanical AV, AF, presented with lethargy, passing out, denies chest pain, no palpitations, no breathing problems. Allergies No Known Drug Allergies Allergy (Unverified 09/21/24 22:34) Unknown Home medications list reviewed: Yes Home Medications: Aspirin [Aspirin EC 81 MG] 81 mg PO DAILY 09/21/24 Diltiazem Tab [Cardizem Tab*] 120 mg PO BID 09/21/24 Ezetimibe [Zetia*] 40 mg PO BEDTIME 09/21/24 Furosemide [Lasix*] 40 mg PO DAILY 09/21/24 Lisinopril [Zestril] 20 mg PO BID 09/21/24 Magnesium Glycinate 1 tab PO DAILY 09/21/24 Metformin HCl 500 mg PO BID 09/21/24 Sotalol HCl [Betapace*] 40 mg PO BID 09/21/24 Ubidecarenone [Co Q-10] 100 mg PO BEDTIME 09/21/24 Warfarin Sodium 7.5 mg PO BEDTIME 09/21/24 - Past Medical/Surgical History Diabetic: Yes -: Mechanical aortic valve -: Atrial fibrillation -: Diabetes mellitus type [id number] -: Hypertension -: Hyperlipidemia -: CKDunknown baseline Psychosocial/ Personal History: Lives at home with family - Social History Alcohol use: No CD- Drugs: No Caffeine use: Yes Place of Residence: Home Review of Systems 10-point ROS is otherwise unremarkable Physical Examination Temp Pulse Resp BP Pulse Ox 98.3 F 80 20 122/76 95 09/22/24 08:00 09/22/24 08:17 09/22/24 08:00 09/22/24 08:17 09/22/24 08:00 General: Alert, In no apparent distress HEENT: Atraumatic, PERRLA, Mucous membr. moist/pink, EOMI, Sclerae nonicteric Neck: Supple, 2+ carotid pulse no bruit, No LAD, Without JVD or thyroid abnormality Respiratory: Clear to auscultation bilaterally, Normal air movement Cardiovascular: Regular rate/rhythm, Normal S1 S2 Gastrointestinal: Normal bowel sounds, No tenderness Musculoskeletal: No tenderness Integumentary: No rashes Neurological: Normal gait, Normal speech, Normal tone, Normal affect Lymphatics: No axilla or inguinal lymphadenopathy Laboratory Data (last 24 hrs) 09/21/24 09/21/24 09/21/24 13:30 13:30 13:30 WBC 17.10 H Hgb 11.1 L Hct 32.8 L Plt Count 308 PT 18.6 H INR 1.67 APTT 30.9 Sodium 132 L Potassium 4.3 BUN 25 H Creatinine 2.73 H Glucose 135 H Total Bilirubin 0.6 AST 68 H ALT 62 H Alkaline Phosphatase 85 - Problems (1) Syncope Current Visit: Yes Status: Acute Plan: unclear etiology, patient was hypotensive when EMS arrived, continue to monitor on tele Diltazem 120 mg po BID Echo advised patient that if no arrhythmia noticed during hospital stay then he will need to 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 (2) H/O mechanical aortic valve replacement Current Visit: Yes Status: Acute Plan: continue Warfarin 7.5 mg daily continue Heparin drip until INR is therapeutic (2-3) echo (3) Atrial fibrillation Current Visit: Yes Status: Acute Plan: monitor on tele diltazem 120 mg po BID Warfarin resume Sotalol once patient kidney function is better.
--- NOTE | 2024-09-22 12:57 | ECHO ---
HEIGHT: 6 ft 2 in WEIGHT: 250 lb 0 oz DATE OF STUDY: 09/22/[address]: Martin Kearney NP 2-DIMENSIONAL: YES M.MODE: YES DOPPLER: YES COLOR FLOW: YES TDS: PORTABLE: YES DEFINITY: BUBBLE STUDY: DIAGNOSIS: EVALUATE MECHANICAL VALVE/ RULE OUT ENDOCARDITIS CARDIAC HISTORY: CATHERIZATION: SURGERY: PROSTHETIC VALVE: PACEMAKER: MEASUREMENTS (cm) DIASTOLIC (NORMALS) SYSTOLIC (NORMALS) IVSd 1.3 (0.6-1.2) LA Diam 4.4 (1.9-4.0) LVEF 55-60% LVIDd 5.9 (3.5-5.7) LVIDs 4.3 (2.0-3.5) %FS 27% LVPWd 1.3 (0.6-1.2) Ao Diam 3.7 (2.0-3.7) 2 DIMENSIONAL ASSESSMENT: RIGHT ATRIUM: NORMAL LEFT ATRIUM: NORMAL RIGHT VENTRICLE: NORMAL LEFT VENTRICLE: NORMAL TRICUSPID VALVE: MILD TRICUSPID REGURGITATION MITRAL VALVE: NORMAL PULMONIC VALVE: NORMAL AORTIC VALVE: MECHANICAL PERICARDIAL EFFUSION: NONE AORTIC ROOT: NORMAL LEFT VENTRICULAR WALL MOTION: NORMAL DOPPLER/COLOR FLOW: NORMAL COMMENTS: 1. NORMAL LEFT VENTRICULAR SYSTOLIC FUNCTION, EJECTION FRACTION 55-60%, NORMAL WALL MOTION 2. NORMAL DIASTOLIC FUNCTION 3. MECHANICAL AORTIC VALVE, DOPPLER VELOCITY INDEX 0.6 4. MILD PULMONARY HYPERTENSION (RIGHT VENTRICULAR SYSTOLIC PRESSURE 35-40 mmHg) TECHNOLOGIST: CHRIS BURCH
--- NOTE | 2024-09-22 13:30 | RAD REPORT ---
EXAMINATION: ONE VIEW CHEST XR CLINICAL INDICATION: COPD TECHNIQUE: Frontal chest projection is submitted. Examination is limited by patient positioning and t echnique. COMPARISON: 09/21/2024 FINDINGS: Mild bilateral pulmonary edema is suspected. The heart is moderately enlarged in size. No displaced f ractures identified. IMPRESSION: Mild CHF versus volume overload pattern is suspected. No radiopaque foreign body seen.
[2024-09-22] MEDS: VANCOMYCIN 2 GM in NA CHLORIDE 0.9% 500 ML IVPB SCH (14:14)
[2024-09-22 14:19] LABS: UR CREAT 82.0 mg/dL (20-370); UR PROTEIN 123.9 mg/dL (<11.9)
--- NOTE | 2024-09-22 15:57 | CON ---
Date of Consultation: 09/22/2024 Reason For Consultation: Elevated BUN and creatinine, fluid management. History Of Present Illness: This is a pleasant 53-year-old gentleman with significant past medical h istory of aortic valve, hypertension, hyperlipidemia, AFib, the patient was in his regular state of h ealth. The patient came to the hospital complaining from shortness of breath with chest tightness. For the last 2 days, the patient has presyncopal episode. During that, the patient's blood pressure was down to the 70 at home, for that reason brought to the hospital. Upon arrival to the hospital, t he patient found to have creatinine 2.7 with GFR 27. The patient undergone CT without any contrast, did not show any hydronephrosis. Past Medical History: Includes; 1. Aortic valve replacement. 2. AFib. 3. Questionable diabetes. 4. Hypertension. 5. Hyperlipidemia. 6. Chronic kidney disease, baseline creatinine 1.6, GFR of 34 as of April 2024. Family History: Positive for hypertension. Social History: Active alcohol. Denied smoking. Denied drinking. Lives with family. Allergies: NO KNOWN DRUGS ALLERGY. Review of Systems: Head and Neck: No red eye. No ear pain. GI: No nausea. No vomiting. : No polyuria. No dysuria. No hematuria. BRICKLAYER'S ASSISTANT: Not applicable. Respiratory: No shortness of breath. Cardiovascular: Has presyncope. Has low blood pressure. Has dizziness. Neuro: Has presyncope. Has dizziness. Musculoskeletal: Toe pain. Physical Examination: General: When I saw to the patient, the patient lying in bed, not on any distress. Vital Signs: Blood pressure 119/79, pulse of 72, afebrile. Chest: Clear to auscultation. Heart: S1, S2. Regular. Systolic murmur. Abdomen: Soft, nontender. Extremities: Dressing on the foot. No edema. Neurologic: Alert. No focality. Laboratory Data: WBC 12.1, hemoglobin of 10, platelet 233. Upon arrival to the hospital, creatinine 2.7, sodium 132. Today's lab data; sodium 134, potassium 3.9, bicarb 23, BUN 24, creatinine 2.2, GF R of 34, calcium 8.5, albumin 3.3, corrected calcium of 9. Current Medications: The patient on is include cefepime, vancomycin, heparin, Coumadin, diltiazem 12 0 daily, gabapentin, Zofran, and insulin. Assessment And Plan: 1. Acute kidney injury on chronic kidney disease, obstructive uropathy has been ruled out, mostly sec ondary to prerenal, superimposed with low blood pressure and MANJEET inhibitor, superimposed with diureti c use. The patient looked to me still on the dry side. I am going to continue with hydration and we will send for the workup. We will send also for renal ultrasound and PTH to evaluate the chronicity of the disease. 2. Hyponatremia, depletional, superimposed with Lasix. I agree with holding the Lasix. Continue hyd ration and we will follow up. 3. Hypertension with the presence of acute kidney injury. Hold MANJEET inhibitor. Hold Lasix. Hold blo od pressure medication till blood pressure has been stabilized. 4. Diabetes with the presence of current kidney function. I agree with holding the metformin. 5. Foot infection, currently on antibiotic. We will follow up culture. Follow up with Surgery. Thank you for allowing us to participate in the care of your patient. INDERJIT Voice ID: [id number] Report ID: [id number]
[2024-09-22 17:04] VITALS: BMI 32.1
--- NOTE | 2024-09-22 18:02 | P.PN ---
Date of Service: 09/22/24 Subjective Awake and sitting in bedside chair Good conversation, oriented INR dropped but will continue heparin drip Blood cultures with no growth to date ROS 10 point ROS as noted above, otherwise negative Physical Exam General: AAO x3, Obese HEENT: Atraumatic, PERRLA, EOMI Neck: Supple Respiratory: Clear BBS, Normal air movement, RA Cardiovascular: RRR, Normal S1 S2, Other (Audible click from aortic valve) Gastrointestinal: Normal bowel sounds, No tenderness Musculoskeletal: No tenderness Neurological: Normal speech, Normal affect Vitals Reviewed Problem list Suspected severe sepsis Right great toe wound Acute kidney injury Mechanical aortic valve on warfarin with subtherapeutic INR Atrial fibrillation on chronic anticoagulation Diabetes mellitus type [id number] Hypertension Hyperlipidemia Neuropathy Assessment and Plan Suspected severe sepsis Right great toe wound continue broad-spectrum antibiotic with vancomycin/cefepime Blood cultures with NGTD CT chest abdomen pelvis noncontrast shows some perinephric stranding which may be infection or renal failure no other acute findings Wound to right great toe not very impressive, does not match severity of suspected infection Interval bacteremia, endocarditis lactic acid cleared Acute kidney injury Continue IV fluids Creatinine improved CT abdomen/pelvis negative for obstructive findings Nephrology consultation Mechanical aortic valve on warfarin with subtherapeutic INR Atrial fibrillation on chronic anticoagulation Continue heparin drip with coumadin Echocardiogram reports mild pulmonary HTN, Mechanical aortic valve, ED 55-60%, no reports of endocarditis Daily INR Continue sotalol, Cardizem Diabetes mellitus type [id number] ACHS Accu-Chek, sliding scale insulin Hold metformin given DORIE Hypertension Will continue sotalol and Cardizem for rate control hold other blood premedications including lisinopril Hyperlipidemia Neuropathy Continue home medications DVT PPX: Heparin drip, bridge with warfarin Code status: Full code Discharge Plan: Home Plan to discharge in: 72 Hours Time Spent Managing Pts Care (In Minutes): 35
[2024-09-22] MEDS: GABAPENTIN 400 MG CAP PO ONE (21:23)
[2024-09-23] MEDS ORDERED: VANCOMYCIN 2 GM in NA CHLORIDE 0.9% 500 ML IVPB SCH (02:00)
[2024-09-23 07:20] LABS: Absolute Lymphocytes (CBC) 0.8 K/uL (0.7-4.9); Hematocrit 28.3 % (39.6-49.0); Hemoglobin 9.7 g/dL (13.6-17.9); MCH 33.0 pg (27.0-35.0); MCHC 34.4 g/dL (32.0-36.0); MCV 96.0 fL (80-100); MPV 7.6 fL (7.6-11.3); Nucleated RBC Absolute Count 0.0 (0-0); Nucleated Red Blood Cells % 0.0 % (0-0); RBC Red Blood Cell Count 2.95 M/uL (4.33-5.43); White Blood Count 5.40 thou/uL (4.3-10.9)
[2024-09-23 07:25] LABS: PT Prothrombin Time 15.6 SECONDS (10-13.0); Protime INR 1.39
[2024-09-23 07:53] LABS: ALT/SGPT 36.0 U/L (16-61); AST/SGOT 31.0 U/L (15-37); Albumin 3.2 g/dL (3.4-5.0); Albumin/Globulin Ratio 0.9 (1.1-1.8); Alkaline Phosphatase 59.0 U/L (45-117); Anion Gap 13.0 mEq/L (5.0-15.0); BUN Blood Urea Nitrogen 19.0 mg/dL (7-18); Globulin 3.7 g/dL (2.3-3.5); Glucose Level 138.0 mg/dL (74-106); Potassium 4.0 mEq/L (3.5-5.1); Thyroid Stimulating Hormone 3.11 uIU/mL (0.358-3.740); Uric Acid 4.4 mg/dL (3.5-7.2)
[2024-09-23] MEDS: DILTIAZEM HCL 120 MG SR CAP PO SCH (09:14)
[2024-09-23] MEDS: GABAPENTIN 400 MG CAP PO SCH ×2 (09:14→21:31)
[2024-09-23] MEDS: WARFARIN SODIUM 5 MG TAB PO ONE (10:30)
--- NOTE | 2024-09-23 10:43 | P.PN ---
Date of Service: 09/23/24 53-year-old gentleman with significant past medical history of aortic valve, hypertension, hyperlipidemia, AFib, the patient was in his regular state of health. The patient came to the hospital complaining from shortness of breath with chest tightness. For the last 2 days, the patient has presyncopal episode. During that, the patient's blood pressure was down to the 70 at home, for that reason brought to the hospital. Upon arrival to the hospital, the patient found to have creatinine 2.7 with GFR 27. The patient undergone CT without any contrast, did not show any hydronephrosis Active Medications Diltiazem HCl (Diltiazem Hcl 120 Mg Sr Cap) 120 mg PO DAILY GARCIA Last Admin: 09/23/24 09:14 Dose: 120 mg Gabapentin (Gabapentin 400 Mg Cap) 800 mg PO BEDTIME GARCIA Gabapentin (Gabapentin 400 Mg Cap) 400 mg PO BID@0900,1200 GARCIA Last Admin: 09/23/24 09:14 Dose: 400 mg Heparin Sodium (Porcine) (Heparin 1,000 Unit/Ml Vial) 0 unit IV PRN PRN PRN Reason: Heparin Re-Bolus Per Protocol Last Admin: 09/22/24 22:51 Dose: 3,000 unit Cefepime HCl 1 gm/ Sodium (Chloride) 100 mls @ 200 mls/hr IV Q12HR GARCIA; Protocol Last Admin: 09/23/24 09:14 Dose: 100 mls Heparin Sodium/Dextrose (Heparin Drip 25,000 Units/5oo Ml Premix) 25,000 unit in 500 mls @ 0 mls/hr IV UD GARCIA; Protocol Last Admin: 09/22/24 20:14 Dose: 500 mls Vancomycin HCl 2 gm/ Sodium (Chloride) 500 mls @ 250 mls/hr IVPB Q24H GARCIA; Protocol Last Admin: 09/22/24 14:14 Dose: 500 mls Insulin Human Regular (Insulin Regular (Human) 100 Unit/Ml) 0 unit SQ ACHS [facility]; Protocol Last Admin: 09/23/24 07:30 Dose: Not Given Ondansetron HCl (Ondansetron 4 Mg/2 Ml Vial) 4 mg IV Q6HP PRN PRN Reason: NAUSEA / VOMITING Warfarin Sodium (Warfarin Sodium 5 Mg Tab) 10 mg PO DAILY 5 PM [facility] Physical exam Temp Pulse Resp BP Pulse Ox 97.7 F 62 16 120/80 97 09/23/24 08:00 09/23/24 08:00 09/23/24 08:00 09/23/24 08:00 09/23/24 08:00 General: When I saw to the patient, the patient lying in bed, not on any distress. Chest: Clear to auscultation. Heart: S1, S2. Regular. Systolic murmur. Abdomen: Soft, nontender. Extremities: Dressing on the foot. No edema. Neurologic: Alert. No focality. Laboratory Last Values WBC 17.10 thou/uL (4.3-10.9) H 09/21/24 13:30 RBC 3.44 M/uL (4.33-5.43) L 09/21/24 13:30 Hgb 11.1 g/dL (13.6-17.9) L 09/21/24 13:30 Hct 32.8 % (39.6-49.0) L 09/21/24 13:30 MCV 95.2 fL (80-100) 09/21/24 13:30 MCH 32.2 pg (27.0-35.0) 09/21/24 13:30 MCHC 33.8 g/dL (32.0-36.0) 09/21/24 13:30 RDW 17.6 % (12.1-15.2) H 09/21/24 13:30 Plt Count 308 thou/uL (152-406) 09/21/24 13:30 MPV 8.1 fL (7.6-11.3) 09/21/24 13:30 Neutrophils % 89.9 % (41.7-73.7) H 09/21/24 13:30 Lymphocytes % 2.6 % (15.3-44.8) L 09/21/24 13:30 Monocytes % 6.2 % (3.3-12.3) 09/21/24 13:30 Eosinophils % 1.0 % (0-4.4) 09/21/24 13:30 Basophils % 0.3 % (0-1.3) 09/21/24 13:30 Absolute Neutrophils 15.3 K/uL (1.8-8.0) H 09/21/24 13:30 Absolute Lymphocytes 0.4 K/uL (0.7-4.9) L 09/21/24 13:30 Absolute Monocytes 1.1 K/uL (0.1-1.3) 09/21/24 13:30 Absolute Eosinophils 0.2 K/uL (0-0.5) 09/21/24 13:30 Absolute Basophils 0.0 K/uL (0-0.5) 09/21/24 13:30 Platelet Estimate Adeq 09/21/24 13:30 Anisocytosis Slight 09/21/24 13:30 Macrocytosis Slight 09/21/24 13:30 Stomatocytes 1+ 09/21/24 13:30 Morphology Comment Noted (NOT SEEN) 09/21/24 13:30 PT 18.6 SECONDS (10-13.0) H 09/21/24 13:30 INR 1.67 09/21/24 13:30 APTT 30.9 SECONDS (27.2-37.4) 09/21/24 13:30 Sodium 132 mEq/L (136-145) L 09/21/24 13:30 Potassium 4.3 mEq/L (3.5-5.1) 09/21/24 13:30 Chloride 98 mEq/L (98-107) 09/21/24 13:30 Carbon Dioxide 24 mEq/L (21-32) 09/21/24 13:30 Anion Gap 14.3 mEq/L (5.0-15.0) 09/21/24 13:30 BUN 25 mg/dL (7-18) H 09/21/24 13:30 Creatinine 2.73 mg/dL (0.70-1.30) H 09/21/24 13:30 Est GFR (CKD-EPI) 27 ml/min (=/>90) L 09/21/24 13:30 Glucose 135 mg/dL (74-106) H 09/21/24 13:30 Lactic Acid 3.1 mmol/L (0.4-2.0) H* 09/21/24 13:30 Lactic Acid F/U @ 2Hr Reorder 09/21/24 14:04 Calcium 9.9 mg/dL (8.5-10.1) 09/21/24 13:30 Total Bilirubin 0.6 mg/dL (0.2-1.0) 09/21/24 13:30 AST 68 U/L (15-37) H 09/21/24 13:30 ALT 62 U/L (16-61) H 09/21/24 13:30 Alkaline Phosphatase 85 U/L (45-117) 09/21/24 13:30 Troponin I High Sens 8.5 pg/mL (<58.9) 09/21/24 13:30 NT-Pro-B Natriuret Pep 202 pg/mL (<125) H 09/21/24 13:30 Serum Total Protein 7.9 g/dL (6.4-8.2) 09/21/24 13:30 Albumin 4.0 g/dL (3.4-5.0) 09/21/24 13:30 Globulin 3.9 g/dL (2.3-3.5) H 09/21/24 13:30 Albumin/Globulin Ratio 1.0 (1.1-1.8) L 09/21/24 13:30 Urine Color Yellow (Yellow) 09/21/24 13:05 Urine Clarity Turbid (Clear) H 09/21/24 13:05 Urine pH 7.0 (5.0-7.0) 09/21/24 13:05 Ur Specific Aurelia 1.010 (1.005-1.030) 09/21/24 13:05 Glucose (UA)(Auto) Negative (Negative) 09/21/24 13:05 Urine Ketones Negative (Negative) 09/21/24 13:05 Urine Blood 2+ (Negative) H 09/21/24 13:05 Urine Nitrite Negative (Negative) 09/21/24 13:05 Urine Bilirubin Negative (Negative) 09/21/24 13:05 Urine Urobilinogen Normal (Normal) 09/21/24 13:05 Ur Leukocyte Esterase Negative Radha/uL (Negative) 09/21/24 13:05 Urine RBC <5 /HPF (None Seen) 09/21/24 13:05 Urine WBC <5 /HPF (<5) 09/21/24 13:05 Ur Squamous Epith Cells <5 /HPF (None Seen) 09/21/24 13:05 Urine Bacteria None seen /HPF (<20) 09/21/24 13:05 Urine Yeast (Budding) Trace /HPF (None Seen) H 09/21/24 13:05 Urine Culture Reflexed Not needed 09/21/24 13:05 Urine Total Protein 1+ (Negative) H 09/21/24 13:05 Influenza Type A Ag Negative 09/21/24 12:12 Influenza Type B Ag Negative 09/21/24 12:12 SARS-CoV-2 Ag (Rapid) Negative (Negative) 09/21/24 12:12 SARS CoV-2 Rapid Comm See below 09/21/24 12:12 Group A Strep Rapid Negative (Negative) 09/21/24 12:12 Smear Scan Ok (OK) 09/21/24 13:30 Assessment And Plan: 1. Acute kidney injury on chronic kidney disease, obstructive uropathy has been ruled out, mostly secondary to prerenal,/cardiorenal syndrome superimposed with low blood pressure and MANJEET inhibitor, superimposed with diuretic use. Currently patient on the normal volume side kidney function continue to improve : DC IV fluid Keep holding MANJEET inhibitor We will continue to monitor the patient 2. Hyponatremia, depletional, superimposed with Lasix. I agree with holding the Lasix. Continue hydration and we will follow up. 3. Hypertension with the presence of acute kidney injury. Hold MANJEET inhibitor. Hold Lasix. Hold blood pressure medication till blood pressure has been stabilized. 4. Diabetes with the presence of current kidney function. I agree with holding the metformin. 5. Foot infection, currently on antibiotic. We will follow up culture. Follow up with Surgery. 6-chronic kidney disease stage IIIb secondary to diabetes nephropathy hypertension nephrosclerosis normal-sized kidney proteinuric nonnephrotic obstructive uropathy has been ruled out baseline creatinine as of April 2024 1.6 GFR of 34 with acute kidney injury as above Thank you for allowing us to participate in the care of your patient. Time spent examining the patient [id number] reviewing data lab and the radiology placing order discussing the case with the patient and by bedside discussing the case with the hourly team members including hospitalist and nursing staff more than 55-minute
--- NOTE | 2024-09-23 11:22 | P.PN ---
Subjective Date of Service: 09/23/24 Chief Complaint: Severe sepsis Subjective: No new changes, No C/O voiced, Tolerating diet, Ambulating, Improving Review of Systems 10-point ROS is otherwise unremarkable Physical Examination - Vital Signs Temperature: 97.7 F Blood Pressure: 120/80 Pulse: 62 Respirations: 16 Pulse Ox (%): 97 - Physical Exam General: Alert, In no apparent distress HEENT: Atraumatic, PERRLA, EOMI Neck: Supple, JVD not distended Respiratory: Clear to auscultation bilaterally, Normal air movement Cardiovascular: Regular rate/rhythm, Normal S1 S2 Gastrointestinal: Normal bowel sounds, No tenderness Musculoskeletal: No tenderness Integumentary: No rashes Neurological: Normal speech, Normal tone, Normal affect Lymphatics: No axilla or inguinal lymphadenopathy - Studies Medications List Reviewed: Yes Assessment And Plan - Current Problems (Diagnosis) (1) Syncope Current Visit: Yes Status: Acute Plan: unclear etiology, patient was hypotensive when EMS arrived, continue to monitor on tele Diltazem 120 mg po BID Echo shows normal EF, normal lopez motion and normal mechanical valve function. 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 (2) H/O mechanical aortic valve replacement Current Visit: Yes Status: Acute Plan: continue Warfarin 7.5 mg daily give an extra coumadin 5 mg today x1 continue Heparin drip until INR is therapeutic (2-3) Echo shows normal EF, normal lopez motion and normal mechanical valve function with chance of moderate prosthesis mismatch (3) Atrial fibrillation Current Visit: Yes Status: Acute Plan: monitor on tele diltazem 120 mg po BID Warfarin resume Sotalol 40 mg po BID once patient kidney function is better. (4) Bacteremia Current Visit: Yes Status: Acute Plan: questionable sepsis on presentations, blood cultures still negative no need for LILI unless bactermia is confirmed.
[2024-09-23] MEDS: levETIRAcetam 500 MG TAB PO SCH (14:54)
[2024-09-23] MEDS: WARFARIN SODIUM 5 MG TAB PO SCH (16:42)
--- NOTE | 2024-09-23 17:56 | P.PN ---
Date of Service: 09/23/24 Subjective Awake sitting in his bed Neurology consulted and EEG ordered for further evaluation of syncopal episodes INR remains low while on heparin gtt, additional coumadin ordered ROS 10 point ROS as noted above, otherwise negative Physical Exam General: AAO x3, Obese HEENT: Atraumatic Respiratory: Clear BBS, RA Cardiovascular: Normal S1 S2, Other (Audible click from aortic valve) Gastrointestinal: Normal bowel sounds, No tenderness Musculoskeletal: No tenderness Neurological: Normal speech, Normal affect Vitals Reviewed Problem list Suspected severe sepsis Right great toe wound Acute kidney injury Mechanical aortic valve on warfarin with subtherapeutic INR Atrial fibrillation on chronic anticoagulation Diabetes mellitus type [id number] Hypertension Hyperlipidemia Neuropathy Assessment and Plan Suspected severe sepsis Right great toe wound continue broad-spectrum antibiotic with vancomycin/cefepime Blood cultures with NGTD CT chest abdomen pelvis noncontrast shows some perinephric stranding which may be infection or renal failure no other acute findings Wound to right great toe not very impressive, does not match severity of suspected infection Interval bacteremia, endocarditis lactic acid cleared Acute kidney injury Continue IV fluids Creatinine improved CT abdomen/pelvis negative for obstructive findings Nephrology consultation Mechanical aortic valve on warfarin with subtherapeutic INR Atrial fibrillation on chronic anticoagulation Continue heparin drip with coumadin Echocardiogram reports mild pulmonary HTN, Mechanical aortic valve, ED 55-60%, no reports of endocarditis Daily INR Continue Cardizem, coumadin increase dose today to 15 mg total and will go back to 7.5 mg tomorrow Diabetes mellitus type [id number] ACHS Accu-Chek, sliding scale insulin Hold metformin and sotalol given DORIE Hypertension Will continue sotalol and Cardizem for rate control hold other blood premedications including lisinopril Hyperlipidemia Neuropathy Continue home medications DVT PPX: Heparin drip, bridge with warfarin Code status: Full code Discharge Plan: Home Plan to discharge in: 72 Hours Time Spent Managing Pts Care (In Minutes): 40
--- NOTE | 2024-09-23 23:47 | CON ---
Reason For Consultation: Consultation called because of syncopal episode. History Of Present Illness: Mr. Boateng is a 53-year-old patient with a history of alcohol consumpti on around 6 drinks weekly for perhaps 20+ years. 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 He is in hospital with his 4th episode that i s very similar. He said the initial episode occurred in April 2024 while at work. 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 He was sitting in a chair and apparently fell forward onto the desk, but becca ed any injury to his face. He said he was out perhaps up to about 30 minutes. He knew that because the meeting was about 15 minutes in and is about an hour long and meeting was about 45 minutes from t he end when he regained awareness. He had lost urine control, but no tongue biting. He had multiple similar episodes and the last episode that brought him to the hospital was just prior to his admissi on. He has had 1 episode that actually was witnessed while in hospital and he said his [id number] who is a nurse, witnessed the event where he rolled his eyes, became unresponsive. Did not have any faith tonic or clonic activity, but lost urine control and was awake and disoriented. He came to [facility] on September 21, 2024. Head [address] scan showed no evidence of acute ischemic change. Laboratory Studies: His laboratory studies essentially showed a very elevated white blood cell count of 17,000, neutrophils 89.9. The following day, it went down to 12,000 and 87.5 and earlier today, white blood cell count was and neutrophils normal at 70.1. Hemoglobin 9.7 and platelets 2 01. He had normal INR and PT elevated to 18.6. His kidney function did show renal insufficiency wit h creatinine 1.58, BUN 19. Blood sugars fasting over 500. On admission, his lactic acid level was e levated at 3.1. His liver function studies did show elevated AST of 55. Uric acid is unremarkable. Urinalysis did show trace budding yeast, 2+ blood, turbid clarity. Vancomycin, which patient is on trough is 10.2. His antiprotease, , ZI screen pending. He has negative COVID testing, ne gative group A strep and influenza A and B negative. Past Medical History: Diabetes mellitus, long history of alcohol consumption, atrial fibrillation. He has mechanical heart valve, dyslipidemia. Past Surgical History: Mechanical heart valve placement. Family History: Noncontributory. Social History: No alcohol use. Denies recent tobacco use. No IV drug use. Allergies: NO KNOWN DRUG ALLERGIES. Current Medications: He is on cefepime 1 g every 12 hours, Cardizem 120 mg daily, gabapentin ___ 800 mg at bedtime. He has heparin on board for DVT prophylaxis, Keppra now starting at 500 mg tw ice daily, Zofran 4 mg every 6 hours as needed, vancomycin 2 g every 24 hours, and Coumadin 7.5 mg da lanny for his atrial fibrillation. Note, his INR is subtherapeutic at 1.39. Family History: Noncontributory. Review of Systems: Currently, denies any fevers, chills, nausea, vomiting, myalgias, arthralgias, rash, headache, weight change. No psychiatric complaints. No other positives on systems review. Physical Examination: Vital Signs: Blood pressure ranged 130 to 151 over 80 to 94, pulse 61 to 63, respiratory rate 16 to 20, temperature is 97.7, oxygen saturation 100% on room air. Weight 250 pounds, height 6 feet 2 inch es, BMI 32.1. General: Mr. Boateng is resting comfortably in bed. He is in no significant distress. HEENT: Appears normocephalic, atraumatic. Sclerae anicteric. Oropharynx pink and moist. Neck: Supple. Chest: Clear. Heart: Regular. Extremities: No clubbing, cyanosis, or edema noted. Neurological: He has no focal cranial nerve, motor, sensory, coordination or gait deficits. Just st ocking-glove loss, light touch temperature, and mildly depressed reflexes. Assessment And Plan: Mr. Boateng is a 53-year-old patient with at least 4 similar episodes consisten t with complex partial seizures with loss of urine control and no convulsions. He has comorbids are hypertension, diabetes mellitus atrial fibrillation, subtherapeutic INR. He is now on Keppra 500 mg twice daily. Plan: He would continue Keppra 500 mg twice daily. EEG was done earlier today. It will be reviewed and he may be discharged once his potential systemic infection is addressed. Discharge and follow up in Dr. Gresham[facility] clinic for long-term ambulatory EEG monitoring study and Keppra blood level. e patient was informed he should not drive a car or operate heavy machinery for 3 months from the parmjit e of his last seizure. He may be discharged again and follow up with Dr. Gresham[facility] clinic within e month. JESUS/DISHA Voice ID: [id number] Report ID: [id number]
[2024-09-24 04:54] VITALS: TEMP 97.6
[2024-09-24 05:42] LABS: Absolute Lymphocytes (CBC) 1.1 K/uL (0.7-4.9); Hematocrit 27.9 % (39.6-49.0); Hemoglobin 9.9 g/dL (13.6-17.9); MCH 33.7 pg (27.0-35.0); MCHC 35.4 g/dL (32.0-36.0); MCV 95.2 fL (80-100); MPV 7.5 fL (7.6-11.3); Nucleated RBC Absolute Count 0.0 (0-0); Nucleated Red Blood Cells % 0.1 % (0-0); RBC Red Blood Cell Count 2.93 M/uL (4.33-5.43); White Blood Count 4.70 thou/uL (4.3-10.9)
[2024-09-24 06:06] LABS: PT Prothrombin Time 16.6 SECONDS (10-13.0); Protime INR 1.49
[2024-09-24 06:07] LABS: PTT, Activated Partial Thromb 44.1 SECONDS (27.2-37.4)
[2024-09-24 06:14] LABS: ALT/SGPT 31.0 U/L (16-61); AST/SGOT 23.0 U/L (15-37); Albumin 3.1 g/dL (3.4-5.0); Albumin/Globulin Ratio 0.8 (1.1-1.8); Alkaline Phosphatase 54.0 U/L (45-117); Anion Gap 8.5 mEq/L (5.0-15.0); BUN Blood Urea Nitrogen 16.0 mg/dL (7-18); Globulin 3.7 g/dL (2.3-3.5); Glucose Level 127.0 mg/dL (74-106); Potassium 4.5 mEq/L (3.5-5.1)
[2024-09-24 12:28] VITALS: BP 133/86
--- NOTE | 2024-09-24 12:48 | P.PN ---
Subjective Date of Service: 09/24/24 Chief Complaint: Severe sepsis Subjective: No new changes, No C/O voiced, Tolerating diet, Ambulating, Improving Review of Systems 10-point ROS is otherwise unremarkable Physical Examination - Vital Signs Temperature: 97.6 F Blood Pressure: 133/86 Pulse: 57 Respirations: 16 Pulse Ox (%): 100 - Physical Exam General: Alert, In no apparent distress HEENT: Atraumatic, PERRLA, EOMI Neck: Supple, JVD not distended Respiratory: Clear to auscultation bilaterally, Normal air movement Cardiovascular: Regular rate/rhythm, Normal S1 S2 Gastrointestinal: Normal bowel sounds, No tenderness Musculoskeletal: No tenderness Integumentary: No rashes Neurological: Normal speech, Normal tone, Normal affect Lymphatics: No axilla or inguinal lymphadenopathy - Studies Medications List Reviewed: Yes Assessment And Plan - Current Problems (Diagnosis) (1) Syncope Current Visit: Yes Status: Acute Plan: unclear etiology, patient was hypotensive when EMS arrived, continue to monitor on tele Diltazem 120 mg po BID Echo shows normal EF, normal lopez motion and normal mechanical valve function. 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 (2) H/O mechanical aortic valve replacement Current Visit: Yes Status: Acute Plan: continue Warfarin 7.5 mg daily, if patient want to go home then can bridge with SQ therapeutic Lovenox until INR is 2-3 continue Heparin drip until INR is therapeutic (2-3) Echo shows normal EF, normal lopez motion and normal mechanical valve function with chance of moderate prosthesis mismatch (3) Atrial fibrillation Current Visit: Yes Status: Acute Plan: monitor on tele diltazem 120 mg po BID Warfarin resume Sotalol 40 mg po BID (4) Bacteremia Current Visit: Yes Status: Acute Plan: questionable sepsis on presentations, blood cultures still negative no need for LILI unless bactermia is confirmed.
--- NOTE | 2024-09-24 13:40 | P.DS ---
Admission Date: 09/21/24 Discharge Date: 09/24/24 Disposition: ROUTINE DISCHARGE Discharge Condition: GOOD Reason for Admission: Severe sepsis Brief History of Present Illness: Diagnosis severe sepsis Right great toe wound Acute kidney injury Mechanical aortic valve on warfarin with subtherapeutic INR Atrial fibrillation on chronic anticoagulation Diabetes mellitus type [id number] Hypertension Hyperlipidemia Neuropathy HPI 09/21/24 53-year-old male with history of mechanical aortic valve on warfarin, hypertension, hyperlipidemia, diabetes mellitus type 2 has [id number], atrial fibrillation presents the emergency department chief complaint of syncope. He reports that he was at a restaurant today and he suddenly began to feel lightheaded and was assisted to the ground by a yared wetzel. Since then he has had significant rigors/chills. Family member at bedside reports that the last 2 nights he has stood up to the bathroom and had syncopal or near syncopal events, they checked his blood pressure overnight at home and found to be in the 70s over 40s. Patient was evaluated here in the emergency department his labs were significant for leukocytosis with a white blood cell count of 17.1 hemoglobin 11.1 hematocrit 32.8 INR 1.67 lactate 3.1 creatinine 2.73 GFR 27 glucose 135 sodium 132 AST 68 ALT 62 troponin normal BNP 202 UA with 2+ blood negative for COVID/influenza, chest x-ray is negative for acute findings, CT head was negative for acute findings CT chest abdomen pelvis without contrast subsequently performed showed only nonspecific perinephric stranding which could indicate infection or renal failure. Blood cultures were obtained in the emergency department he was started on broad-spectrum antibiotics with vancomycin/cefepime. He does have a small wound to the right great toe with some mild erythema surrounding, questionable cellulitis. Patient need to be admitted for further management of suspected severe sepsis Hospital Course: Patient was seen and treated for the following diagnoses Suspected severe sepsis Right great toe wound continue broad-spectrum antibiotic with vancomycin/cefepime Blood cultures with NGTD CT chest abdomen pelvis noncontrast shows some perinephric stranding which may be infection or renal failure no other acute findings Wound to right great toe not very impressive, does not match severity of suspected infection Interval bacteremia, endocarditis lactic acid cleared Acute kidney injury Continue IV fluids Creatinine improved CT abdomen/pelvis negative for obstructive findings Nephrology consultation Mechanical aortic valve on warfarin with subtherapeutic INR Atrial fibrillation on chronic anticoagulation Continue heparin ip with coumadin Echocardiogram reports mild pulmonary HTN, Mechanical aortic valve, ED 55-60%, no reports of endocarditis Daily INR Continue Cardizem, coumadin increase dose today to 15 mg total and will go back to 7.5 mg tomorrow Diabetes mellitus type [id number] ACHS Accu-Chek, sliding scale insulin Hold metformin and sotalol given DORIE Hypertension Will continue sotalol and Cardizem for rate control hold other blood premedications including lisinopril Hyperlipidemia Neuropathy Continue home medications Physical Exam General: AAO x3, Obese HEENT: Atraumatic Respiratory: Clear BBS, RA Cardiovascular: Normal S1 S2, Other (Audible click from aortic valve) Gastrointestinal: Normal bowel sounds, No tenderness Musculoskeletal: No tenderness Neurological: Normal speech, Normal affect Vital Signs/Physical Exam: Temp Pulse Resp BP Pulse Ox 97.6 F 57 16 133/86 100 09/24/24 12:48 09/24/24 12:48 09/24/24 12:48 09/24/24 12:48 09/24/24 12:48 Laboratory Data at Discharge: WBC 4.70 thou/uL (4.3-10.9) 09/24/24 05:34 Hgb 9.9 g/dL (13.6-17.9) L 09/24/24 05:34 Hct 27.9 % (39.6-49.0) L 09/24/24 05:34 Plt Count 236 thou/uL (152-406) 09/24/24 05:34 PT 16.6 SECONDS (10-13.0) H 09/24/24 05:34 INR 1.49 09/24/24 05:34 APTT Cancelled 09/24/24 11:00 Sodium 140 mEq/L (136-145) 09/24/24 05:34 Potassium 4.5 mEq/L (3.5-5.1) 09/24/24 05:34 BUN 16 mg/dL (7-18) 09/24/24 05:34 Creatinine 1.63 mg/dL (0.70-1.30) H 09/24/24 05:34 Glucose 127 mg/dL (74-106) H 09/24/24 05:34 Uric Acid 4.4 mg/dL (3.5-7.2) 09/23/24 07:08 Phosphorus 2.8 mg/dL (2.5-4.9) 09/24/24 05:34 Total Bilirubin 0.4 mg/dL (0.2-1.0) 09/24/24 05:34 AST 23 U/L (15-37) 09/24/24 05:34 ALT 31 U/L (16-61) 09/24/24 05:34 Alkaline Phosphatase 54 U/L (45-117) 09/24/24 05:34 Home Medications: Aspirin [Aspirin EC 81 MG] 81 mg PO DAILY 09/21/24 Diltiazem Tab [Cardizem Tab*] 120 mg PO BID 09/21/24 Ezetimibe [Zetia*] 40 mg PO BEDTIME 09/21/24 Furosemide [Lasix*] 40 mg PO DAILY 09/21/24 Lisinopril [Zestril] 20 mg PO BID 09/21/24 Magnesium Glycinate 1 tab PO DAILY 09/21/24 Metformin HCl 500 mg PO BID 09/21/24 Sotalol HCl [Betapace*] 40 mg PO BID 09/21/24 Ubidecarenone [Co Q-10] 100 mg PO BEDTIME 09/21/24 Warfarin Sodium 7.5 mg PO BEDTIME 09/21/24 Gabapentin 400 mg PO SEECOM 09/22/24 Diltiazem Cd [Cardizem Cd*] 120 mg PO DAILY cap 09/24/24 Enoxaparin Sodium [Lovenox 100 MG INJ] 100 mg SQ BID 10 Days #20 ml 09/24/24 Gabapentin [Neurontin*] 400 mg PO BID@0900,1200 cap 09/24/24 Gabapentin [Neurontin*] 800 mg PO BEDTIME cap 09/24/24 Warfarin Sodium [Coumadin*] 7.5 mg PO DAILY 5 PM tab 09/24/24 levETIRAcetam [Keppra*] 500 mg PO BID 30 Days #60 tab 09/24/24 New Medications: levETIRAcetam [Keppra*] 500 mg PO BID 30 Days #60 tab Enoxaparin Sodium [Lovenox 100 MG INJ] 100 mg SQ BID 10 Days #20 ml Physician Discharge Instructions: 1. Please call and schedule a follow-up appointment with your PCP in 3-5 days - Please follow-up with your PCP for medication refills/adjustments 2. Please call and schedule a follow-up appointment with Dr. Gresham in one week -Will need another EEG for continued monitoring for seizure activity 3. Please call and schedule a follow-up appointment with Dr. Weiss or your appraisal analyst in 1 week -Will likely need an event monitor and mechanical valve evaluation for possible prosthesis mismatch 4. Please call and schedule a follow-up appointment with Dr. Lees in 1 week 5. Continue heart healthy diet 6. activity restrictions fall precaution, seizure diagnosis this admission 7. Return to the ED if symptoms worsen New medications Keppra 500 mg twice daily Lovenox 100 mg injection twice daily until INR has reached 2-3 therapeutic range Continue Coumadin 7.5 mg daily Please go to [facility] Saturday and Saturday for INR check as Coumadin dose was increased on Saturday Continue diltiazem and sotalol for atrial fibrillation Diet: AHA Activity: Fall precautions Followup: Giselle Lees MD [ACTIVE - CAN ADMIT] - Diego Gresham MD [ASSOCIATE-ACTIVE - CAN ADMIT] - 1-2 Weeks Daniel Weiss MD [ACTIVE - CAN ADMIT] - 1-2 Weeks Christin Aldana NP [Primary Care Provider] - 1-2 Weeks
--- NOTE | 2024-09-24 14:27 | P.PN ---
Date of Service: 09/24/24 53-year-old gentleman with significant past medical history of aortic valve, hypertension, hyperlipidemia, AFib, the patient was in his regular state of health. The patient came to the hospital complaining from shortness of breath with chest tightness. For the last 2 days, the patient has presyncopal episode. During that, the patient's blood pressure was down to the 70 at home, for that reason brought to the hospital. Upon arrival to the hospital, the patient found to have creatinine 2.7 with GFR 27. The patient undergone CT without any contrast, did not show any hydronephrosis Active Medications Diltiazem HCl (Diltiazem Hcl 120 Mg Sr Cap) 120 mg PO DAILY GARCIA Last Admin: 09/23/24 09:14 Dose: 120 mg Gabapentin (Gabapentin 400 Mg Cap) 800 mg PO BEDTIME GARCIA Gabapentin (Gabapentin 400 Mg Cap) 400 mg PO BID@0900,1200 GARCIA Last Admin: 09/23/24 09:14 Dose: 400 mg Heparin Sodium (Porcine) (Heparin 1,000 Unit/Ml Vial) 0 unit IV PRN PRN PRN Reason: Heparin Re-Bolus Per Protocol Last Admin: 09/22/24 22:51 Dose: 3,000 unit Cefepime HCl 1 gm/ Sodium (Chloride) 100 mls @ 200 mls/hr IV Q12HR GARCIA; Protocol Last Admin: 09/23/24 09:14 Dose: 100 mls Heparin Sodium/Dextrose (Heparin Drip 25,000 Units/5oo Ml Premix) 25,000 unit in 500 mls @ 0 mls/hr IV UD GARCIA; Protocol Last Admin: 09/22/24 20:14 Dose: 500 mls Vancomycin HCl 2 gm/ Sodium (Chloride) 500 mls @ 250 mls/hr IVPB Q24H GARCIA; Protocol Last Admin: 09/22/24 14:14 Dose: 500 mls Insulin Human Regular (Insulin Regular (Human) 100 Unit/Ml) 0 unit SQ ACHS GARCIA; Protocol Last Admin: 09/23/24 07:30 Dose: Not Given Ondansetron HCl (Ondansetron 4 Mg/2 Ml Vial) 4 mg IV Q6HP PRN PRN Reason: NAUSEA / VOMITING Warfarin Sodium (Warfarin Sodium 5 Mg Tab) 10 mg PO DAILY 5 PM [facility] Physical exam Temp Pulse Resp BP Pulse Ox 97.6 F 57 16 133/86 100 09/24/24 12:48 09/24/24 12:48 09/24/24 12:48 09/24/24 12:48 09/24/24 12:48 General: When I saw to the patient, the patient lying in bed, not on any distress. Chest: Clear to auscultation. Heart: S1, S2. Regular. Systolic murmur. Abdomen: Soft, nontender. Extremities: Dressing on the foot. No edema. Neurologic: Alert. No focality. Laboratory Last Values WBC 17.10 thou/uL (4.3-10.9) H 09/21/24 13:30 RBC 3.44 M/uL (4.33-5.43) L 09/21/24 13:30 Hgb 11.1 g/dL (13.6-17.9) L 09/21/24 13:30 Hct 32.8 % (39.6-49.0) L 09/21/24 13:30 MCV 95.2 fL (80-100) 09/21/24 13:30 MCH 32.2 pg (27.0-35.0) 09/21/24 13:30 MCHC 33.8 g/dL (32.0-36.0) 09/21/24 13:30 RDW 17.6 % (12.1-15.2) H 09/21/24 13:30 Plt Count 308 thou/uL (152-406) 09/21/24 13:30 MPV 8.1 fL (7.6-11.3) 09/21/24 13:30 Neutrophils % 89.9 % (41.7-73.7) H 09/21/24 13:30 Lymphocytes % 2.6 % (15.3-44.8) L 09/21/24 13:30 Monocytes % 6.2 % (3.3-12.3) 09/21/24 13:30 Eosinophils % 1.0 % (0-4.4) 09/21/24 13:30 Basophils % 0.3 % (0-1.3) 09/21/24 13:30 Absolute Neutrophils 15.3 K/uL (1.8-8.0) H 09/21/24 13:30 Absolute Lymphocytes 0.4 K/uL (0.7-4.9) L 09/21/24 13:30 Absolute Monocytes 1.1 K/uL (0.1-1.3) 09/21/24 13:30 Absolute Eosinophils 0.2 K/uL (0-0.5) 09/21/24 13:30 Absolute Basophils 0.0 K/uL (0-0.5) 09/21/24 13:30 Platelet Estimate Adeq 09/21/24 13:30 Anisocytosis Slight 09/21/24 13:30 Macrocytosis Slight 09/21/24 13:30 Stomatocytes 1+ 09/21/24 13:30 Morphology Comment Noted (NOT SEEN) 09/21/24 13:30 PT 18.6 SECONDS (10-13.0) H 09/21/24 13:30 INR 1.67 09/21/24 13:30 APTT 30.9 SECONDS (27.2-37.4) 09/21/24 13:30 Sodium 132 mEq/L (136-145) L 09/21/24 13:30 Potassium 4.3 mEq/L (3.5-5.1) 09/21/24 13:30 Chloride 98 mEq/L (98-107) 09/21/24 13:30 Carbon Dioxide 24 mEq/L (21-32) 09/21/24 13:30 Anion Gap 14.3 mEq/L (5.0-15.0) 09/21/24 13:30 BUN 25 mg/dL (7-18) H 09/21/24 13:30 Creatinine 2.73 mg/dL (0.70-1.30) H 09/21/24 13:30 Est GFR (CKD-EPI) 27 ml/min (=/>90) L 09/21/24 13:30 Glucose 135 mg/dL (74-106) H 09/21/24 13:30 Lactic Acid 3.1 mmol/L (0.4-2.0) H* 09/21/24 13:30 Lactic Acid F/U @ 2Hr Reorder 09/21/24 14:04 Calcium 9.9 mg/dL (8.5-10.1) 09/21/24 13:30 Total Bilirubin 0.6 mg/dL (0.2-1.0) 09/21/24 13:30 AST 68 U/L (15-37) H 09/21/24 13:30 ALT 62 U/L (16-61) H 09/21/24 13:30 Alkaline Phosphatase 85 U/L (45-117) 09/21/24 13:30 Troponin I High Sens 8.5 pg/mL (<58.9) 09/21/24 13:30 NT-Pro-B Natriuret Pep 202 pg/mL (<125) H 09/21/24 13:30 Serum Total Protein 7.9 g/dL (6.4-8.2) 09/21/24 13:30 Albumin 4.0 g/dL (3.4-5.0) 09/21/24 13:30 Globulin 3.9 g/dL (2.3-3.5) H 09/21/24 13:30 Albumin/Globulin Ratio 1.0 (1.1-1.8) L 09/21/24 13:30 Urine Color Yellow (Yellow) 09/21/24 13:05 Urine Clarity Turbid (Clear) H 09/21/24 13:05 Urine pH 7.0 (5.0-7.0) 09/21/24 13:05 Ur Specific [place] 1.010 (1.005-1.030) 09/21/24 13:05 Glucose (UA)(Auto) Negative (Negative) 09/21/24 13:05 Urine Ketones Negative (Negative) 09/21/24 13:05 Urine Blood 2+ (Negative) H 09/21/24 13:05 Urine Nitrite Negative (Negative) 09/21/24 13:05 Urine Bilirubin Negative (Negative) 09/21/24 13:05 Urine Urobilinogen Normal (Normal) 09/21/24 13:05 Ur Leukocyte Esterase Negative Radha/uL (Negative) 09/21/24 13:05 Urine RBC <5 /HPF (None Seen) 09/21/24 13:05 Urine WBC <5 /HPF (<5) 09/21/24 13:05 Ur Squamous Epith Cells <5 /HPF (None Seen) 09/21/24 13:05 Urine Bacteria None seen /HPF (<20) 09/21/24 13:05 Urine Yeast (Budding) Trace /HPF (None Seen) H 09/21/24 13:05 Urine Culture Reflexed Not needed 09/21/24 13:05 Urine Total Protein 1+ (Negative) H 09/21/24 13:05 Influenza Type A Ag Negative 09/21/24 12:12 Influenza Type B Ag Negative 09/21/24 12:12 SARS-CoV-2 Ag (Rapid) Negative (Negative) 09/21/24 12:12 SARS CoV-2 Rapid Comm See below 09/21/24 12:12 Group A Strep Rapid Negative (Negative) 09/21/24 12:12 Smear Scan Ok (OK) 09/21/24 13:30 Diltiazem HCl (Diltiazem Hcl 120 Mg Sr Cap) 120 mg PO DAILY GARCIA Last Admin: 09/24/24 09:34 Dose: 120 mg Enoxaparin Sodium (Enoxaparin 100 Mg/Ml Syr) 100 mg SQ Q12HR GARCIA Gabapentin (Gabapentin 400 Mg Cap) 800 mg PO BEDTIME GARCIA Last Admin: 09/23/24 21:31 Dose: 800 mg Gabapentin (Gabapentin 400 Mg Cap) 400 mg PO BID@0900,1200 GARCIA Last Admin: 09/24/24 09:35 Dose: 400 mg Cefepime HCl 1 gm/ Sodium (Chloride) 100 mls @ 200 mls/hr IV Q12HR GARCIA; Protocol Last Admin: 09/24/24 09:34 Dose: 100 mls Vancomycin HCl 2 gm/ Sodium (Chloride) 500 mls @ 250 mls/hr IVPB Q24H GARCIA; Protocol Last Admin: 09/23/24 14:53 Dose: 500 mls Insulin Human Regular (Insulin Regular (Human) 100 Unit/Ml) 0 unit SQ ACHS GARCIA; Protocol Last Admin: 09/24/24 11:30 Dose: Not Given Levetiracetam (Levetiracetam 500 Mg Tab) 500 mg PO BID [facility] Last Admin: 09/24/24 09:35 Dose: 500 mg Ondansetron HCl (Ondansetron 4 Mg/2 Ml Vial) 4 mg IV Q6HP PRN PRN Reason: NAUSEA / VOMITING Warfarin Sodium (Warfarin Sodium 7.5 Mg Tab) 7.5 mg PO DAILY 5 PM [facility] Assessment And Plan: 1. Acute kidney injury on chronic kidney disease, obstructive uropathy has been ruled out, mostly secondary to prerenal,/cardiorenal syndrome superimposed with low blood pressure and MANJEET inhibitor, superimposed with diuretic use. Currently patient on the normal volume side kidney function continue to improve : Patient to clear from the renal standpoint for DC planning Keep holding MANJEET inhibitor 2. Hyponatremia, depletional, superimposed with Lasix. I agree with holding the Lasix. Continue hydration and we will follow up. 3. Hypertension with the presence of acute kidney injury. Hold MANJEET inhibitor. Hold Lasix. Hold blood pressure medication till blood pressure has been stabilized. 4. Diabetes with the presence of current kidney function. I agree with holding the metformin. 5. Foot infection, currently on antibiotic. We will follow up culture. Follow up with Surgery. 6-chronic kidney disease stage IIIb secondary to diabetes nephropathy hypertension nephrosclerosis normal-sized kidney proteinuric nonnephrotic obstructive uropathy has been ruled out baseline creatinine as of April 2024 1.6 GFR of 34 with acute kidney injury as above Thank you for allowing us to participate in the care of your patient. Time spent examining the patient [id number] reviewing data lab and the radiology placing order discussing the case with the patient and by bedside discussing the case with the horses or mules teamster including hospitalist and nursing staff more than 55-minute
[2024-09-24] MEDS ORDERED: WARFARIN SODIUM 7.5 MG TAB PO SCH (17:00)
[2024-09-24] MEDS ORDERED: ENOXAPARIN 100 MG/ML SYR SQ SCH (21:00)
--- NOTE | 2024-09-25 09:11 | EEG ---
CHART: [id number] TEST ID#: [id number] DATE OF STUDY: 09/23/2024 THE EEG WAS RECORDED PORTABLE IN THE PATIENT'S ROOM ON A 17 CHANNEL MACHINE. ELECTRODES WERE APPLIED IN THE USUAL MANNER USING THE INTERNATIONAL 10-20 SYSTEM. THE WAKING BACKGROUND RHYTHM IN THIS RECORD CONSISTS OF WELL DEVELOPED AND WELL ORGANIZED WAVES OF 9 HZ., MAXIMAL IN THE POSTERIOR HEAD REGIONS WHICH ATTENUATE NORMALLY WITH EYE OPENING. LOW-VOLTAGE 18-22 HZ ACTIVITY IS EXPRESSED IN THE FRONTAL REGIONS. THERE ARE NO FOCAL OR LATERALIZING FEATURES. NO EPILEPTIFORM ACTIVITY APPEARS. SLEEP OCCURRED NATURALLY. IN ADDITION TO NORMAL SLEEP PATTERNS ARE PRESENT. HYPERVENTILATION WAS NOT PERFORMED. PHOTIC STIMULATION PRODUCED NO DRIVING BILATERALLY. IMPRESSION: NORMAL EEG FOR THE AGE OF THE PATIENT IN [place], DROWSINESS AND SLEEP.
[2024-09-26 21:26] LABS: Albumin, (SPE) 3.5 g/dL (3.8-4.8); Total Protein 6.4 g/dL (6.1-8.1)
[2024-09-27 01:11] LABS: C-ANCA Anti-Proteinase 3 <1.0 AI (<1.0); P-ANCA Anti-Myeloperoxidase Ab <1.0 AI (<1.0)
== END 2024-09-24 14:13 | disposition home or self-care (01) | DRG 872 ==
LOC: ER 11:58 → ERHOLD 16:20 → 2ND 18:06
PROVIDERS: ADMIT Hospitalist; ATTEND Internal Medicine
DX: A41.9 Sepsis, unspecified organism (principal); N17.9 Acute kidney failure, unspecified; G40.209 Localization-related (focal) (partial) symptomatic epilepsy and epileptic syndromes with complex partial seizures, not intractable, without status epilepticus; R65.20 Severe sepsis without septic shock; Z79.01 Long term (current) use of anticoagulants; Z95.2 Presence of prosthetic heart valve; E78.5 Hyperlipidemia, unspecified; E11.40 Type 2 diabetes mellitus with diabetic neuropathy, unspecified; Z11.52 Encounter for screening for COVID-19; Z79.82 Long term (current) use of aspirin; Z79.899 Other long term (current) drug therapy; Z79.84 Long term (current) use of oral hypoglycemic drugs; I48.91 Unspecified atrial fibrillation; L08.9 Local infection of the skin and subcutaneous tissue, unspecified; N18.32 Chronic kidney disease, stage 3b; I12.9 Hypertensive chronic kidney disease with stage 1 through stage 4 chronic kidney disease, or unspecified chronic kidney disease; E11.22 Type 2 diabetes mellitus with diabetic chronic kidney disease
CPT/HCPCS: 36415; 70450; 71045; 71250; 74176; 80053; 80069; 80202; 81001; 82550; 82570; 82947; 83605; 83880; 83970; 84156; 84165; 84443; 84484; 84550; 85025; 85610; 85730; 86021; 86038; 86803; 87040; 87070; 87428; 93005; 93306; 95816; 96374; 96375; 99285; J0690; J0692; J1644; J1815; J3370; J7030; J7040; J7050